=== PATIENT | male | born 2000 | race Caucasian/White ===

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

== ENCOUNTER 2021-09-16 15:19 | Emergency (ER) | payer OTHER ==
--- OUTSIDE RECORDS SUMMARY | 2021-09-16 15:26 | XMS REPORT | Continuity of Care Document ---
:2000 Author Organization [facility] t Address [address] [place] [address] Care Team Providers Name Role Phone Marcia Primary Care Physician DENI Attending Clinician Unavailable Deni BAIRES Attending Clinician Pob, Lab Main Attending Clinician Unavailable Doctor Unassigned, Name Attending Clinician Unavailable Vtc-Lab Attending Clinician Unavailable BENEDICTO Attending Clinician Unavailable Stephen PENALOZA Attending Clinician STEPHEN Attending Clinician Unavailable Sunitha PENALOZA Attending Clinician SUNITHA Attending Clinician Unavailable Gramm CONSERVATION SCIENTIST, A Attending Clinician Provider, Urgent Care Attending Clinician Unavailable Unknown Attending Clinician Unavailable Anene CONSERVATION SCIENTIST Attending Clinician ANENE Attending Clinician Unavailable Gurvinder PENALOZA Attending Clinician UNKNOWN Attending Clinician Unavailable Urology, Pedi Attending Clinician Unavailable Kwadwo PENALOZA Attending Clinician Payers Payer Name Policy Type Policy Number Effective Date Expiration Date Sebastian GUTIÉRREZS [id number] 2016 HEALTH 00:00:00 Problems Condition Condition Condition Status Onset Resolution Last Treating Co mments Source Name Details Category Date Date Treatment Clinician Date 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 4-26 ity of 00:00: [place] 00 Medical Branch Allergies, Adverse Reactions, Alerts Allergy Allergy Status Severity Reaction(s) Onset Inactive Treating Comm ents Source Name Type Date Date Clinician Aripipra Propensi Active Shortness of Informe d Univers zole ty to Breath 5-04 by parent ity of adverse 00:00: [place] reaction 00 Medical s to Branch drug Fluticas Propensi Active Shortness of Informe d Univers one ty to Breath 5-04 by parent ity of Propion- adverse 00:00: [place] Sal[place] reaction 00 Medica l ol s to Branch drug Ziprasid Propensi Active Shortness of Informe d Univers one Hcl ty to Breath 5-04 by parent ity of adverse 00:00: [place] reaction 00 Medical s to Branch drug Quetiapi Propensi Active Shortness of Informe d Univers ne ty to Breath 5-04 by parent ity of Fumarate adverse 00:00: [place] reaction 00 Medical s to Branch drug Bupropio Propensi Active Shortness of Informe d Univers n ty to Breath 5-04 by parent ity of adverse 00:00: [place] reaction 00 Medical s to Branch drug ARIPIPRA DRUG Active Med Anxiety 0 Univers ZOLE INGREDI 5-04 ity of 00:00: [place] 00 Medical Branch FLUTICAS DRUG Active Med SOB 2014-0 Univers ONE 5-04 ity of PROPION- 00:00: [place] SALMETER 00 Medical Branch ZIPRASID DRUG Active Med Anxiety 2015-0 Univers ONE HCL INGREDI 5-04 ity of 00:00: [place] 00 [facility] QUETIAPI DRUG Active Med Anaphylaxis 2015-0 Uni vers NE INGREDI 5-04 ity of FUMARATE 00:00: [place] 00 [facility] BUPROPIO DRUG Active Med Anxiety 2014-0 Univers N INGREDI 5-04 ity of 00:00: [place] 00 [facility] Social History Social Habit Start Date Stop Date Quantity Comments Source Exposure to Not sure [facility] SARS-CoV-2 (event) Medica l [place] Tobacco use and 2020-12-26 2020-12-26 Never used [facility] exposure 00:00:00 00:00:00 [facility] Alcohol intake 2020-12-26 2020-12-26 0 /d [facility] 00:00:00 00:00:00 [facility] Sex Assigned At 2000 2001 [facility] 00:00:00 00:00:00 Medical Branch Smoking Status Start Date Stop Date Source Never smoker [facility] Medical Branch Medications Ordered Filled Start Stop Current Ordering Indication Dosage Frequency Signature Comments Components Source Medication Medication Date Date Medication? Clinician (SIG) Name Name dexamethaso 2019-07- No 8mg Unive rs ne 09-04 ity of (DECADRON 00:30: 23:34 [place] PHOSPHATE) 00 :00 Medical injection 8 Branch mg dexamethaso 2019-07- No 8mg 8 mg, IV U nivers ne 09-04 Push, ity of (DECADRON 00:30: 23:34 [place]CE, 1 [place] PH[place] 00 :00 dose, Tue Medi hermes injection 8 07/03/20 at [facility] mg 1830, Routine cephALEXin 2019-07- No [id number] 500mg Take 1 Univers (KEFLEX) 09-0316 capsule by ity of 500 mg 00:00: 05:59 mouth 2 [place] capsule 00 :00 (two) Medical times Branch daily for 7 days. diphenhydrA 2019-07- No [id number] 25mg Take 1 Univers MINE 09-0314 capsule by ity of (BENADRYL) 00:00: 05:59 mouth [place] 25 mg 00 :00 every 6 Medical capsule (six) Branch hours as needed for Itching or Allergies for up to 5 days. hydrOXYzine 2020-0 Yes 25mg Take 25 mg Univers (ATARAX) 25 8-05 by mouth ity of mg tablet 20:44: at [place] [address] bedtime. Medical Branch propranolol 2020-0 Yes 10mg Take 10 mg Univers (INDERAL) 8-05 by mouth 2 ity of 10 mg 20:44: (two) [place] tablet 36 times Medical daily. Branch NIFEdipine 2020-0 Yes [id number] 30mg Take 30 mg Univers XL 8-05 by mouth ity of (NIFEDICAL 20:44: daily. [place] XL) 30 mg 36 Medical 24 hr Branch tablet citalopram 2020-0 Yes 20mg Take 20 mg U nivers 20 mg 8-05 by mouth ity of tablet 20:44: daily. [place] [address] Medical Branch hydrOXYzine 2020-0 Yes 25mg Take 25 mg Univers (ATARAX) 25 8-05 by mouth ity of mg tablet 20:44: at [place] [address] bedtime. Medical Branch propranolol 2020-0 Yes 10mg Take 10 mg Univers (INDERAL) 8-05 by mouth 2 ity of 10 mg 20:44: (two) [place] tablet 36 times Medical daily. Branch NIFEdipine 2020-0 Yes [id number] 30mg Take 30 mg Univers XL 8-05 by mouth ity of (NIFEDICAL 20:44: daily. [place] XL) 30 mg 36 Medical 24 hr Branch tablet citalopram 2020-0 Yes 20mg Take 20 mg U nivers 20 mg 8-05 by mouth ity of tablet 20:44: daily. [place] [address] Medical Branch hydrOXYzine 2020-0 Yes 25mg Take 25 mg Univers (ATARAX) 25 8-05 by mouth ity of mg tablet 20:44: at [place] [address] bedtime. Medical Branch propranolol 2020-0 Yes 10mg Take 10 mg Univers (INDERAL) 8-05 by mouth 2 ity of 10 mg 20:44: (two) [place] tablet 36 times Medical daily. Branch NIFEdipine 2020-0 Yes [id number] 30mg Take 30 mg Univers XL 8-05 by mouth ity of (NIFEDICAL 20:44: daily. [place] XL) 30 mg 36 Medical 24 hr Branch tablet citalopram 2020-0 Yes 20mg Take 20 mg U nivers 20 mg 8-05 by mouth ity of tablet 20:44: daily. [place] [address] Medical Branch hydrOXYzine 2020-0 Yes 25mg Take 25 mg Univers (ATARAX) 25 8-05 by mouth ity of mg tablet 20:44: at [place] [address] bedtime. Medical Branch propranolol 2020-0 Yes 10mg Take 10 mg Univers (INDERAL) 8-05 by mouth 2 ity of 10 mg 20:44: (two) [place] tablet 36 times Medical daily. Branch NIFEdipine 2020-0 Yes [id number] 30mg Take 30 mg Univers XL 8-05 by mouth ity of (NIFEDICAL 20:44: daily. [place] XL) 30 mg 36 Medical 24 hr Branch tablet citalopram 2020-0 Yes 20mg Take 20 mg U nivers 20 mg 8-05 by mouth ity of tablet 20:44: daily. [place] [address] Medical Branch hydrOXYzine 2020-0 Yes 25mg Take 25 mg Univers (ATARAX) 25 8-05 by mouth ity of mg tablet 20:44: at [place] [address] bedtime. Medical Branch propranolol 2020-0 Yes 10mg Take 10 mg Univers (INDERAL) 8-05 by mouth 2 ity of 10 mg 20:44: (two) [place] tablet 36 times Medical daily. Branch NIFEdipine 2020-0 Yes [id number] 30mg Take 30 mg Univers XL 8-05 by mouth ity of (NIFEDICAL 20:44: daily. [place] XL) 30 mg 36 Medical 24 hr Branch tablet citalopram 2020-0 Yes 20mg Take 20 mg U nivers 20 mg 8-05 by mouth ity of tablet 20:44: daily. [place] [address] Medical Branch hydrOXYzine 2020-0 Yes 25mg Take 25 mg Univers (ATARAX) 25 8-05 by mouth ity of mg tablet 20:44: at [place] [address] bedtime. Medical Branch propranolol 2020-0 Yes 10mg Take 10 mg Univers (INDERAL) 8-05 by mouth 2 ity of 10 mg 20:44: (two) [place] tablet 36 times Medical daily. Branch NIFEdipine 2020-0 Yes [id number] 30mg Take 30 mg Univers XL 8-05 by mouth ity of (NIFEDICAL 20:44: daily. [place] XL) 30 mg 36 Medical 24 hr Branch tablet citalopram 2020-0 Yes 20mg Take 20 mg U nivers 20 mg 8-05 by mouth ity of tablet 20:44: daily. [place] [address] Medical Branch hydrOXYzine 2020-0 Yes 25mg Take 25 mg Univers (ATARAX) 25 8-05 by mouth ity of mg tablet 20:44: at [place] [address] bedtime. Medical Branch propranolol 2020-0 Yes 10mg Take 10 mg Univers (INDERAL) 8-05 by mouth 2 ity of 10 mg 20:44: (two) [place] tablet 36 times Medical daily. Branch NIFEdipine 2020-0 Yes [id number] 30mg Take 30 mg Univers XL 8-05 by mouth ity of (NIFEDICAL 20:44: daily. [place] XL) 30 mg 36 Medical 24 hr Branch tablet citalopram 2020-0 Yes 20mg Take 20 mg U nivers 20 mg 8-05 by mouth ity of tablet 20:44: daily. [place] [address] Medical Branch hydrOXYzine 2020-0 Yes 25mg Take 25 mg Univers (ATARAX) 25 8-05 by mouth ity of mg tablet 20:44: at [place] [address] bedtime. Medical Branch propranolol 2020-0 Yes 10mg Take 10 mg Univers (INDERAL) 8-05 by mouth 2 ity of 10 mg 20:44: (two) [place] tablet 36 times Medical daily. Branch NIFEdipine 2020-0 Yes [id number] 30mg Take 30 mg Univers XL 8-05 by mouth ity of (NIFEDICAL 20:44: daily. [place] XL) 30 mg 36 Medical 24 hr Branch tablet citalopram 2020-0 Yes 20mg Take 20 mg U nivers 20 mg 8-05 by mouth ity of tablet 20:44: daily. [place] [address] Medical Branch hydrOXYzine 2020-0 Yes 25mg Take 25 mg Univers (ATARAX) 25 8-05 by mouth ity of mg tablet 20:44: at [place] [address] bedtime. Medical Branch propranolol 2020-0 Yes 10mg Take 10 mg Univers (INDERAL) 8-05 by mouth 2 ity of 10 mg 20:44: (two) [place] tablet 36 times Medical daily. Branch NIFEdipine 2020-0 Yes [id number] 30mg Take 30 mg Univers XL 8-05 by mouth ity of (NIFEDICAL 20:44: daily. [place] XL) 30 mg 36 Medical 24 hr Branch tablet citalopram 2020-0 Yes 20mg Take 20 mg U nivers 20 mg 8-05 by mouth ity of tablet 20:44: daily. [place] [address] Medical Branch hydrOXYzine 2020-0 Yes 25mg Take 25 mg Univers (ATARAX) 25 8-05 by mouth ity of mg tablet 20:44: at [place] [address] bedtime. Medical Branch propranolol 2020-0 Yes 10mg Take 10 mg Univers (INDERAL) 8-05 by mouth 2 ity of 10 mg 20:44: (two) [place] tablet 36 times Medical daily. Branch NIFEdipine 2020-0 Yes [id number] 30mg Take 30 mg Univers XL 8-05 by mouth ity of (NIFEDICAL 20:44: daily. [place] XL) 30 mg 36 Medical 24 hr Branch tablet citalopram 2020-0 Yes 20mg Take 20 mg U nivers 20 mg 8-05 by mouth ity of tablet 20:44: daily. [place] [address] Medical Branch hydrOXYzine 2020-0 Yes 25mg Take 25 mg Univers (ATARAX) 25 8-05 by mouth ity of mg tablet 20:44: at [place] [address] bedtime. Medical Branch propranolol 2020-0 Yes 10mg Take 10 mg Univers (INDERAL) 8-05 by mouth 2 ity of 10 mg 20:44: (two) [place] tablet 36 times Medical daily. Branch NIFEdipine 2020-0 Yes [id number] 30mg Take 30 mg Univers XL 8-05 by mouth ity of (NIFEDICAL 20:44: daily. [place] XL) 30 mg 36 Medical 24 hr Branch tablet citalopram 2020-0 Yes 20mg Take 20 mg U nivers 20 mg 8-05 by mouth ity of tablet 20:44: daily. [place] [address] Medical Branch hydrOXYzine 2020-0 Yes 25mg Take 25 mg Univers (ATARAX) 25 8-05 by mouth ity of mg tablet 20:44: at [place] [address] bedtime. Medical Branch propranolol 2020-0 Yes 10mg Take 10 mg Univers (INDERAL) 8-05 by mouth 2 ity of 10 mg 20:44: (two) [place] tablet 36 times Medical daily. Branch NIFEdipine 2020-0 Yes [id number] 30mg Take 30 mg Univers XL 8-05 by mouth ity of (NIFEDICAL 20:44: daily. [place] XL) 30 mg 36 Medical 24 hr Branch tablet citalopram 2020-0 Yes 20mg Take 20 mg U nivers 20 mg 8-05 by mouth ity of tablet 20:44: daily. [place] [address] Medical Branch hydrOXYzine 2020-0 Yes 25mg Take 25 mg Univers (ATARAX) 25 8-05 by mouth ity of mg tablet 20:44: at [place] [address] bedtime. Medical Branch propranolol 2020-0 Yes 10mg Take 10 mg Univers (INDERAL) 8-05 by mouth 2 ity of 10 mg 20:44: (two) [place] tablet 36 times Medical daily. Branch NIFEdipine 2020-0 Yes [id number] 30mg Take 30 mg Univers XL 8-05 by mouth ity of (NIFEDICAL 20:44: daily. [place] XL) 30 mg 36 Medical 24 hr Branch tablet citalopram 2020-0 Yes 20mg Take 20 mg U nivers 20 mg 8-05 by mouth ity of tablet 20:44: daily. [place] [address] Medical Branch hydrOXYzine 2020-0 Yes 25mg Take 25 mg Univers (ATARAX) 25 8-05 by mouth ity of mg tablet 20:44: at [place] [address] bedtime. Medical Branch propranolol 2020-0 Yes 10mg Take 10 mg Univers (INDERAL) 8-05 by mouth 2 ity of 10 mg 20:44: (two) [place] tablet 36 times Medical daily. Branch NIFEdipine 2020-0 Yes [id number] 30mg Take 30 mg Univers XL 8-05 by mouth ity of (NIFEDICAL 20:44: daily. [place] XL) 30 mg 36 Medical 24 hr Branch tablet citalopram 2020-0 Yes 20mg Take 20 mg U nivers 20 mg 8-05 by mouth ity of tablet 20:44: daily. [place] [address] Medical Branch hydrOXYzine 2020-0 Yes 25mg Take 25 mg Univers (ATARAX) 25 8-05 by mouth ity of mg tablet 20:44: at [place] [address] bedtime. Medical Branch propranolol 2020-0 Yes 10mg Take 10 mg Univers (INDERAL) 8-05 by mouth 2 ity of 10 mg 20:44: (two) [place] tablet 36 times Medical daily. Branch NIFEdipine 2020-0 Yes [id number] 30mg Take 30 mg Univers XL 8-05 by mouth ity of (NIFEDICAL 20:44: daily. [place] XL) 30 mg 36 Medical 24 hr Branch tablet citalopram 2020-0 Yes 20mg Take 20 mg U nivers 20 mg 8-05 by mouth ity of tablet 20:44: daily. [place] [address] Medical Branch hydrOXYzine 2020-0 Yes 25mg Take 25 mg Univers (ATARAX) 25 8-05 by mouth ity of mg tablet 20:44: at [place] [address] bedtime. Medical Branch propranolol 2020-0 Yes 10mg Take 10 mg Univers (INDERAL) 8-05 by mouth 2 ity of 10 mg 20:44: (two) [place] tablet 36 times Medical daily. Branch NIFEdipine 2020-0 Yes [id number] 30mg Take 30 mg Univers XL 8-05 by mouth ity of (NIFEDICAL 20:44: daily. [place] XL) 30 mg 36 Medical 24 hr Branch tablet citalopram 2020-0 Yes 20mg Take 20 mg U nivers 20 mg 8-05 by mouth ity of tablet 20:44: daily. [place] [address] Medical Branch hydrOXYzine 2020-0 Yes 25mg Take 25 mg Univers (ATARAX) 25 8-05 by mouth ity of mg tablet 20:44: at [place] [address] bedtime. Medical Branch propranolol 2020-0 Yes 10mg Take 10 mg Univers (INDERAL) 8-05 by mouth 2 ity of 10 mg 20:44: (two) [place] tablet 36 times Medical daily. Branch NIFEdipine 2020-0 Yes [id number] 30mg Take 30 mg Univers XL 8-05 by mouth ity of (NIFEDICAL 20:44: daily. [place] XL) 30 mg 36 Medical 24 hr Branch tablet citalopram 2020-0 Yes 20mg Take 20 mg U nivers 20 mg 8-05 by mouth ity of tablet 20:44: daily. [place] [address] Medical Branch hydrOXYzine 2020-0 Yes 25mg Take 25 mg Univers (ATARAX) 25 8-05 by mouth ity of mg tablet 20:44: at [place] [address] bedtime. Medical Branch propranolol 2020-0 Yes 10mg Take 10 mg Univers (INDERAL) 8-05 by mouth 2 ity of 10 mg 20:44: (two) [place] tablet 36 times Medical daily. Branch NIFEdipine 2020-0 Yes [id number] 30mg Take 30 mg Univers XL 8-05 by mouth ity of (NIFEDICAL 20:44: daily. [place] XL) 30 mg 36 Medical 24 hr Branch tablet citalopram 2020-0 Yes 20mg Take 20 mg U nivers 20 mg 8-05 by mouth ity of tablet 20:44: daily. [place] [address] Medical Branch hydrOXYzine 2020-0 Yes 25mg Take 25 mg Univers (ATARAX) 25 8-05 by mouth ity of mg tablet 20:44: at [place] [address] bedtime. Medical Branch propranolol 2020-0 Yes 10mg Take 10 mg Univers (INDERAL) 8-05 by mouth 2 ity of 10 mg 20:44: (two) [place] tablet 36 times Medical daily. Branch NIFEdipine 2020-0 Yes [id number] 30mg Take 30 mg Univers XL 8-05 by mouth ity of (NIFEDICAL 20:44: daily. [place] XL) 30 mg 36 Medical 24 hr Branch tablet citalopram 2020-0 Yes 20mg Take 20 mg U nivers 20 mg 8-05 by mouth ity of tablet 20:44: daily. [place] [address] Medical Branch hydrOXYzine 2020-0 Yes 25mg Take 25 mg Univers (ATARAX) 25 8-05 by mouth ity of mg tablet 20:44: at [place] [address] bedtime. Medical Branch propranolol 2020-0 Yes 10mg Take 10 mg Univers (INDERAL) 8-05 by mouth 2 ity of 10 mg 20:44: (two) [place] tablet 36 times Medical daily. Branch NIFEdipine 2020-0 Yes [id number] 30mg Take 30 mg Univers XL 8-05 by mouth ity of (NIFEDICAL 20:44: daily. [place] XL) 30 mg 36 Medical 24 hr Branch tablet citalopram 2020-0 Yes 20mg Take 20 mg U nivers 20 mg 8-05 by mouth ity of tablet 20:44: daily. [place] [address] Medical Branch hydrOXYzine 2020-0 Yes 25mg Take 25 mg Univers (ATARAX) 25 8-05 by mouth ity of mg tablet 20:44: at [place] [address] bedtime. Medical Branch propranolol 2020-0 Yes 10mg Take 10 mg Univers (INDERAL) 8-05 by mouth 2 ity of 10 mg 20:44: (two) [place] tablet 36 times Medical daily. Branch NIFEdipine 2020-0 Yes [id number] 30mg Take 30 mg Univers XL 8-05 by mouth ity of (NIFEDICAL 20:44: daily. [place] XL) 30 mg 36 Medical 24 hr Branch tablet citalopram 2020-0 Yes 20mg Take 20 mg U nivers 20 mg 8-05 by mouth ity of tablet 20:44: daily. [place] [address] Medical Branch hydrOXYzine 2020-0 Yes 25mg Take 25 mg Univers (ATARAX) 25 8-05 by mouth ity of mg tablet 15:44: at [place] [address] bedtime. Medical Branch propranolol 2020-0 Yes 10mg Take 10 mg Univers (INDERAL) 8-05 by mouth 2 ity of 10 mg 15:44: (two) [place] tablet 36 times Medical daily. Branch NIFEdipine 2020-0 Yes [id number] 30mg Take 30 mg Univers XL 8-05 by mouth ity of (NIFEDICAL 15:44: daily. [place] XL) 30 mg 36 Medical 24 hr Branch tablet citalopram 2020-0 Yes 20mg Take 20 mg U nivers 20 mg 8-05 by mouth ity of tablet 15:44: daily. [place] [address] Medical Branch hydrOXYzine 2020-0 Yes 25mg Take 25 mg Univers (ATARAX) 25 8-05 by mouth ity of mg tablet 15:44: at [place] [address] bedtime. Medical Branch propranolol 2020-0 Yes 10mg Take 10 mg Univers (INDERAL) 8-05 by mouth 2 ity of 10 mg 15:44: (two) [place] tablet 36 times Medical daily. Branch NIFEdipine 2020-0 Yes [id number] 30mg Take 30 mg Univers XL 8-05 by mouth ity of (NIFEDICAL 15:44: daily. [place] XL) 30 mg 36 Medical 24 hr Branch tablet citalopram 2020-0 Yes 20mg Take 20 mg U nivers 20 mg 8-05 by mouth ity of tablet 15:44: daily. [place] [address] Medical Branch hydrOXYzine 2020-0 Yes 25mg Take 25 mg Univers (ATARAX) 25 8-05 by mouth ity of mg tablet 15:44: at [place] [address] bedtime. Medical Branch propranolol 2020-0 Yes 10mg Take 10 mg Univers (INDERAL) 8-05 by mouth 2 ity of 10 mg 15:44: (two) [place] tablet 36 times Medical daily. Branch NIFEdipine 2020-0 Yes [id number] 30mg Take 30 mg Univers XL 8-05 by mouth ity of (NIFEDICAL 15:44: daily. [place] XL) 30 mg 36 Medical 24 hr Branch tablet citalopram 2020-0 Yes 20mg Take 20 mg U nivers 20 mg 8-05 by mouth ity of tablet 15:44: daily. [place] [address] Medical Branch hydrOXYzine 2020-0 Yes 25mg Take 25 mg Univers (ATARAX) 25 8-05 by mouth ity of mg tablet 15:44: at [place] [address] bedtime. Medical Branch propranolol 2020-0 Yes 10mg Take 10 mg Univers (INDERAL) 8-05 by mouth 2 ity of 10 mg 15:44: (two) [place] tablet 36 times Medical daily. Branch NIFEdipine 2020-0 Yes [id number] 30mg Take 30 mg Univers XL 8-05 by mouth ity of (NIFEDICAL 15:44: daily. [place] XL) 30 mg 36 Medical 24 hr Branch tablet citalopram 2020-0 Yes 20mg Take 20 mg U nivers 20 mg 8-05 by mouth ity of tablet 15:44: daily. [place] [address] Medical Branch sulfamethox 2020-0 2020- No [id number] 1{tbl} Take 1 Univers azole-trime 8-05 08-16 tablet by it y of thoprim 00:00: 04:59 mouth 2 [place] (BACTRIM 00 :00 (two) Medical DS) 800-160 times Branch mg per daily for tablet 10 days. hydrOXYzine 2020-0 Yes 25mg Take 25 mg Univers (ATARAX) 25 3-14 by mouth ity of mg tablet 00:24: at [place] [address] bedtime. Medical Branch propranolol 2020-0 Yes 10mg Take 10 mg Univers (INDERAL) 3-14 by mouth 2 ity of 10 mg 00:24: (two) [place] tablet 49 times Medical daily. Branch NIFEdipine 2020-0 Yes [id number] 30mg Take 30 mg Univers XL 3-14 by mouth ity of (NIFEDICAL 00:24: daily. [place] XL) 30 mg 49 Medical 24 hr Branch tablet citalopram 2020-0 Yes 20mg Take 20 mg U nivers 20 mg 3-14 by mouth ity of tablet 00:24: daily. [place] [address] Medical Branch hydrOXYzine 2020-0 Yes 25mg Take 25 mg Univers (ATARAX) 25 3-14 by mouth ity of mg tablet 00:24: at [place] [address] bedtime. Medical Branch propranolol 2020-0 Yes 10mg Take 10 mg Univers (INDERAL) 3-14 by mouth 2 ity of 10 mg 00:24: (two) [place] tablet 49 times Medical daily. Branch NIFEdipine 2020-0 Yes [id number] 30mg Take 30 mg Univers XL 3-14 by mouth ity of (NIFEDICAL 00:24: daily. [place] XL) 30 mg 49 Medical 24 hr Branch tablet citalopram 2020-0 Yes 20mg Take 20 mg U nivers 20 mg 3-14 by mouth ity of tablet 00:24: daily. [place] [address] Medical Branch proMETHazin 2020-0 Yes [id number] 25mg Take 1 Univers e 25 mg 3-13 tablet by ity of tablet 00:00: mouth [place] [address] every 4 Medical (four) Branch hours as needed for Nausea and Vomiting (N/V). proMETHazin 2020-0 Yes [id number] 25mg Take 1 Univers e 25 mg 3-13 tablet by ity of tablet 00:00: mouth [place] 00 every 4 Medical (four) Branch hours as needed for Nausea and Vomiting (N/V). proMETHazin 2020-0 2020- No [id number] 25mg Take 1 Univers e 25 mg 3-13 08-05 tablet by ity of tablet 00:00: 00:00 mouth [place] 00 :00 every 4 Medical (four) Branch hours as needed for Nausea and Vomiting (N/V). atomoxetine 2020-0 Yes atomoxetin Univers 18 mg 3-12 e 18 mg ity of capsule 00:00: capsule [place] [address] Medical Branch atomoxetine 2020-0 Yes atomoxetin Univers 18 mg 3-12 e 18 mg ity of capsule 00:00: capsule [place] [address] Medical Branch atomoxetine 2020-0 Yes atomoxetin Univers 18 mg 3-12 e 18 mg ity of capsule 00:00: capsule [place] [facility] Branch atomoxetine 2020-0 Yes atomoxetin [facility] 18 mg 3-12 e 18 mg ity of capsule 00:00: capsule [place] [facility] atomoxetine 2020-0 Yes atomoxetin [facility] 18 mg 3-12 e 18 mg ity of capsule 00:00: capsule [place] [facility] atomoxetine 2020-0 Yes atomoxetin [facility] 18 mg 3-12 e 18 mg ity of capsule 00:00: capsule [place] [facility] atomoxetine 2020-0 Yes atomoxetin [facility] 18 mg 3-12 e 18 mg ity of capsule 00:00: capsule [place] [facility] atomoxetine 2020-0 Yes atomoxetin [facility] 18 mg 3-12 e 18 mg ity of capsule 00:00: capsule [place] [facility] atomoxetine 2020-0 Yes atomoxetin [facility] 18 mg 3-12 e 18 mg ity of capsule 00:00: capsule [place] [facility] atomoxetine 2020-0 Yes atomoxetin Univers 18 mg 3-12 e 18 mg ity of capsule 00:00: capsule [place] [facility] atomoxetine 2020-0 Yes atomoxetin [facility] 18 mg 3-12 e 18 mg ity of capsule 00:00: capsule [place] [facility] atomoxetine 2020-0 Yes atomoxetin Univers 18 mg 3-12 e 18 mg ity of capsule 00:00: capsule [place] [facility] atomoxetine 2020-0 Yes atomoxetin [facility] 18 mg 3-12 e 18 mg ity of capsule 00:00: capsule [place] [facility] atomoxetine 2020-0 Yes atomoxetin Univers 18 mg 3-12 e 18 mg ity of capsule 00:00: capsule [place] [facility] atomoxetine 2020-0 Yes atomoxetin Univers 18 mg 3-12 e 18 mg ity of capsule 00:00: capsule [place] [facility] atomoxetine 2020-0 Yes atomoxetin [facility] 18 mg 3-12 e 18 mg ity of capsule 00:00: capsule [place] [facility] atomoxetine 2020-0 Yes atomoxetin [facility] 18 mg 3-12 e 18 mg ity of capsule 00:00: capsule [place] [facility] atomoxetine 2020-0 Yes atomoxetin Univers 18 mg 3-12 e 18 mg ity of capsule 00:00: capsule Medical Branch atomoxetine 2020-0 Yes atomoxetin [facility] 18 mg 3-12 e 18 mg ity of capsule 00:00: capsule [place] [facility] atomoxetine 2020-0 Yes atomoxetin Univers 18 mg 3-12 e 18 mg ity of capsule 00:00: capsule [place] [facility] atomoxetine 2020-0 Yes atomoxetin [facility] 18 mg 3-12 e 18 mg ity of capsule 00:00: capsule [place] [facility] atomoxetine 2020-0 Yes atomoxetin [facility] 18 mg 3-12 e 18 mg ity of capsule 00:00: capsule [place] [facility] atomoxetine 2020-0 Yes atomoxetin [facility] 18 mg 3-12 e 18 mg ity of capsule 00:00: capsule [place] [facility] atomoxetine 2020-0 Yes atomoxetin [facility] 18 mg 3-12 e 18 mg ity of capsule 00:00: capsule [place] [facility] atomoxetine 2019-0 Yes atomoxetin [facility] 18 mg 3-12 e 18 mg ity of capsule 00:00: capsule [place] [facility] atomoxetine 2019-0 Yes atomoxetin [facility] 18 mg 3-12 e 18 mg ity of capsule 00:00: capsule [place] [facility] atomoxetine 2020-0 Yes atomoxetin Univers 18 mg 3-12 e 18 mg ity of capsule 00:00: capsule [address] Branch citalopram Yes 20mg Take 20 mg U nivers 20 mg 2-18 by mouth ity of tablet 22:24: daily. [address] citalopram Yes 20mg Take 20 mg U nivers 20 mg 2-18 by mouth ity of tablet 22:24: daily. [address] citalopram Yes 20mg Take 20 mg U nivers 20 mg 2-18 by mouth ity of tablet 22:24: daily. [address] citalopram Yes 20mg Take 20 mg U nivers 20 mg 2-18 by mouth ity of tablet 22:24: daily. [address] benzonatate 2018- Yes [id number] 100mg Take 1 Univers 100 mg 2-18 capsule by ity of capsule 00:00: mouth 3 [place] [id number] (three) Medical times Branch daily as needed for Cough. ondansetron Yes [id number] 4mg Take 1 U nivers (ZOFRAN 2-18 tablet by ity of ODT) 4 mg 00:00: mouth [place] disintegrat 00 every 8 Medic al ing tablet (eight) Branch hours as needed for Nausea and Vomiting (N/V). ibuprofen 2019-0 Yes [id number] 600mg Take 1 Un lilli 600 mg 2-18 tablet by ity of tablet 00:00: mouth [place] 00 every 6 Medical (six) Branch hours as needed for Pain (scale 4-6). benzonatate 2019-0 Yes [id number] 100mg Take 1 Univers 100 mg 2-18 capsule by ity of capsule 00:00: mouth 3 [place] 00 (three) Medical times Branch daily as needed for Cough. ondansetron 2019-0 Yes [id number] 4mg Take 1 U nivers (ZOFRAN 2-18 tablet by ity of ODT) 4 mg 00:00: mouth [place] disintegrat 00 every 8 Medic al ing tablet (eight) Branch hours as needed for Nausea and Vomiting (N/V). ibuprofen 2019-0 Yes [id number] 600mg Take 1 Un lilli 600 mg 2-18 tablet by ity of tablet 00:00: mouth [place] 00 every 6 Medical (six) Branch hours as needed for Pain (scale 4-6). benzonatate 2019-0 Yes [id number] 100mg Take 1 Univers 100 mg 2-18 capsule by ity of capsule 00:00: mouth 3 [place] 00 (three) Medical times Branch daily as needed for Cough. ondansetron 2019-0 Yes [id number] 4mg Take 1 U nivers (ZOFRAN 2-18 tablet by ity of ODT) 4 mg 00:00: mouth [place] disintegrat 00 every 8 Medic al ing tablet (eight) Branch hours as needed for Nausea and Vomiting (N/V). ibuprofen 2019-0 Yes [id number] 600mg Take 1 Un lilli 600 mg 2-18 tablet by ity of tablet 00:00: mouth [place] 00 every 6 Medical (six) Branch hours as needed for Pain (scale 4-6). benzonatate 2019-0 Yes [id number] 100mg Take 1 Univers 100 mg 2-18 capsule by ity of capsule 00:00: mouth 3 [place] 00 (three) Medical times Branch daily as needed for Cough. ondansetron 2019-0 Yes [id number] 4mg Take 1 U nivers (ZOFRAN 2-18 tablet by ity of ODT) 4 mg 00:00: mouth [place] disintegrat 00 every 8 Medic al ing tablet (eight) Branch hours as needed for Nausea and Vomiting (N/V). ibuprofen 2019-0 Yes [id number] 600mg Take 1 Un lilli 600 mg 2-18 tablet by ity of tablet 00:00: mouth [place] 00 every 6 Medical (six) Branch hours as needed for Pain (scale 4-6). benzonatate 2019-0 Yes [id number] 100mg Take 1 Univers 100 mg 2-18 capsule by ity of capsule 00:00: mouth 3 [place] 00 (three) Medical times Branch daily as needed for Cough. ondansetron 2018-0 Yes [id number] 4mg Take 1 U nivers (ZOFRAN 2-18 tablet by ity of ODT) 4 mg 00:00: mouth [place] disintegrat 00 every 8 Medic al ing tablet (eight) Branch hours as needed for Nausea and Vomiting (N/V). ibuprofen Yes [id number] 600mg Take 1 Un lilli 600 mg 2-18 tablet by ity of tablet 00:00: mouth [place] 00 every 6 Medical (six) Branch hours as needed for Pain (scale 4-6). benzonatate 2018-0 Yes [id number] 100mg Take 1 Univers 100 mg 2-18 capsule by ity of capsule 00:00: mouth 3 [place] 00 (three) Medical times Branch daily as needed for Cough. ondansetron 0 Yes [id number] 4mg Take 1 U nivers (ZOFRAN 2-18 tablet by ity of ODT) 4 mg 00:00: mouth [place] disintegrat 00 every 8 Medic al ing tablet (eight) Branch hours as needed for Nausea and Vomiting (N/V). ibuprofen 0 Yes [id number] 600mg Take 1 Un l[facility] 600 mg 2-18 tablet by ity of tablet 00:00: mouth [place] 00 every 6 Medical (six) Branch hours as needed for Pain (scale 4-6). benzonatate 2020- No [id number] 100mg Take 1 Univers 100 mg 2-18 08-05 capsule by ity of capsule 00:00: 00:00 mouth 3 [place] 00 :00 (three) Medical times Branch daily as needed for Cough. ondansetron 2018-0 2020- No [id number] 4mg Take 1 Univers (ZOFRAN 2-18 -05 tablet by ity of ODT) 4 mg 00:00: 00:00 mouth [place] disintegrat 00 :00 every 8 Medic al ing tablet (eight) Branch hours as needed for Nausea and Vomiting (N/V). ibuprofen 2020- No [id number] 600mg Take 1 U nivers 600 mg 2-18 -05 tablet by ity of tablet 00:00: 00:00 mouth [place] 00 :00 every 6 Medical (six) Branch hours as needed for Pain (scale 4-6). propranolol Yes 10mg Take 10 mg Univers (INDERAL) 7-11 by mouth 2 ity of 10 mg 18:23: (two) [place] tablet 37 times Medical daily. Branch NIFEdipine Yes [id number] 30mg Take 30 mg Univers XL 7-11 by mouth ity of (NIFEDICAL 18:23: daily. [place] XL) 30 mg 37 Medical 24 hr Branch tablet propranolol Yes 10mg Take 10 mg Univers (INDERAL) 7-11 by mouth 2 ity of 10 mg 18:23: (two) [place] tablet 37 times Medical daily. Branch NIFEdipine Yes [id number] 30mg Take 30 mg Univers XL 7-11 by mouth ity of (NIFEDICAL 18:23: daily. [place] XL) 30 mg 37 Medical 24 hr Branch tablet propranolol Yes 10mg Take 10 mg Univers (INDERAL) 7-11 by mouth 2 ity of 10 mg 18:23: (two) [place] tablet 37 times Medical daily. Branch NIFEdipine Yes [id number] 30mg Take 30 mg Univers XL 7-11 by mouth ity of (NIFEDICAL 18:23: daily. [place] XL) 30 mg 37 Medical 24 hr Branch tablet propranolol Yes 10mg Take 10 mg Univers (INDERAL) 7-11 by mouth 2 ity of 10 mg 18:23: (two) [place] tablet 37 times Medical daily. Branch NIFEdipine Yes [id number] 30mg Take 30 mg Univers XL 7-11 by mouth ity of (NIFEDICAL 18:23: daily. [place] XL) 30 mg 37 Medical 24 hr Branch tablet hydrOXYzine Yes 25mg Take 25 mg Univers (ATARAX) 25 5-09 by mouth ity of mg tablet 19:34: at [place] 25 bedtime. Medical Branch hydrOXYzine Yes 25mg Take 25 mg Univers (ATARAX) 25 5-09 by mouth ity of mg tablet 19:34: at [place] [address] bedtime. [facility] hydrOXYzine 2017-0 Yes 25mg Take 25 mg Univers (ATARAX) 25 5-09 by mouth ity of mg tablet 19:34: at [place] [address] bedtime. [facility] hydrOXYzine 2017-0 Yes 25mg Take 25 mg Univers (ATARAX) 25 5-09 by mouth ity of mg tablet 19:34: at [place] [address] bedtime. [facility] FLUoxetine 2017-0 Yes daily. Unive rs 40 mg 5-04 ity of capsule 00:00: [place] 00 [facility] FLUoxetine 2017-0 Yes daily. Unive rs 40 mg 5-04 ity of capsule 00:00: [place] 00 [facility] FLUoxetine 2017-0 Yes daily. Unive rs 40 mg 5-04 ity of capsule 00:00: [place] 00 [facility] FLUoxetine 2017-0 Yes daily. Unive rs 40 mg 5-04 ity of capsule 00:00: [place] 00 [facility] FLUoxetine 2017-0 Yes daily. Unive rs 40 mg 5-04 ity of capsule 00:00: [place] 00 [facility] FLUoxetine 2017-0 Yes daily. Unive rs 40 mg 5-04 ity of capsule 00:00: [place] 00 [facility] FLUoxetine 2017-0 Yes daily. Unive rs 40 mg 5-04 ity of capsule 00:00: [place] [facility] FLUoxetine 2017-0 Yes daily. Unive rs 40 mg 5-04 ity of capsule 00:00: [place] 00 [facility] FLUoxetine 2017-0 Yes daily. Unive rs 40 mg 5-04 ity of capsule 00:00: [place] 00 [facility] FLUoxetine 2017-0 Yes daily. Unive rs 40 mg 5-04 ity of capsule 00:00: [place] 00 [facility] FLUoxetine 2017-0 Yes daily. Unive rs 40 mg 5-04 ity of capsule 00:00: [place] 00 [facility] FLUoxetine 2017-0 Yes daily. Unive rs 40 mg 5-04 ity of capsule 00:00: [place] 00 [facility] FLUoxetine 2017-0 Yes daily. Unive rs 40 mg 5-04 ity of capsule 00:00: [place] 00 [facility] FLUoxetine 2017-0 Yes daily. Unive rs 40 mg 5-04 ity of capsule 00:00: [place] 00 Medical Branch FLUoxetine 2017-0 Yes daily. Unive rs 40 mg 5-04 ity of capsule 00:00: [place] 00 Medical Branch FLUoxetine 2017-0 Yes daily. Unive rs 40 mg 5-04 ity of capsule 00:00: [place] [facility] FLUoxetine 2017-0 Yes daily. Unive rs 40 mg 5-04 ity of capsule 00:00: [place] [facility] FLUoxetine 2017-0 Yes daily. Unive rs 40 mg 5-04 ity of capsule 00:00: [place] [facility] FLUoxetine 2017-0 Yes daily. Unive rs 40 mg 5-04 ity of capsule 00:00: [place] [facility] FLUoxetine 2017-0 Yes daily. Unive rs 40 mg 5-04 ity of capsule 00:00: [place] [facility] FLUoxetine 2017-0 Yes daily. Unive rs 40 mg 5-04 ity of capsule 00:00: [place] [facility] FLUoxetine 2017-0 Yes daily. Unive rs 40 mg 5-04 ity of capsule 00:00: [place] [facility] FLUoxetine 2017-0 Yes daily. Unive rs 40 mg 5-04 ity of capsule 00:00: [place] [facility] FLUoxetine 2017-0 Yes daily. Unive rs 40 mg 5-04 ity of capsule 00:00: [place] [facility] FLUoxetine 2017-0 Yes daily. Unive rs 40 mg 5-04 ity of capsule 00:00: [place] [facility] FLUoxetine 2017-0 Yes daily. Unive rs 40 mg 5-04 ity of capsule 00:00: [place] [facility] FLUoxetine 2017-0 Yes daily. Unive rs 40 mg 5-04 ity of capsule 00:00: [place] [facility] FLUoxetine 2017-0 Yes daily. Unive rs 40 mg 5-04 ity of capsule 00:00: [place] [facility] FLUoxetine 2017-0 Yes daily. Unive rs 40 mg 5-04 ity of capsule 00:00: [place] [facility] FLUoxetine 2017-0 Yes daily. Unive rs 40 mg 5-04 ity of capsule 00:00: [place] [facility] FLUoxetine 2017-0 Yes daily. Unive rs 40 mg 5-04 ity of capsule 00:00: [place] [facility] acetaminoph 2017-0 Yes 1{tbl} Take 1 Un lilli en-codeine 4-26 tablet by ity of 300-30 mg 00:00: mouth [place] tablet 00 every 4 Medical (four) Branch hours as needed for Pain (scale 1-3) or Pain (scale 7-10). acetaminoph 2017- Yes 1{tbl} Take 1 Un lilli en-codeine 4-26 tablet by ity of 300-30 mg 00:00: mouth [place] tablet 00 every 4 Medical (four) Branch hours as needed for Pain (scale 1-3) or Pain (scale 7-10). acetaminoph 2017-0 Yes 1{tbl} Take 1 Un lilli en-codeine 4-26 tablet by ity of 300-30 mg 00:00: mouth [place] tablet 00 every 4 Medical (four) Branch hours as needed for Pain (scale 1-3) or Pain (scale 7-10). acetaminoph Yes 1{tbl} Take 1 Un lilli en-codeine 4-26 tablet by ity of 300-30 mg 00:00: mouth [place] tablet 00 every 4 Medical (four) Branch hours as needed for Pain (scale 1-3) or Pain (scale 7-10). acetaminoph Yes 1{tbl} Take 1 Un lilli en-codeine 4-26 tablet by ity of 300-30 mg 00:00: mouth [place] tablet 00 every 4 Medical (four) Branch hours as needed for Pain (scale 1-3) or Pain (scale 7-10). acetaminoph Yes 1{tbl} Take 1 Un lilli en-codeine 4-26 tablet by ity of 300-30 mg 00:00: mouth [place] tablet 00 every 4 Medical (four) Branch hours as needed for Pain (scale 1-3) or Pain (scale 7-10). acetaminoph 2017 2020- No 1{tbl} Take 1 U nivers en-codeine 4-26 08-05 tablet by ity of 300-30 mg 00:00: 00:00 mouth [place] tablet 00 :00 every 4 Medical (four) Branch hours as needed for Pain (scale 1-3) or Pain (scale 7-10). polyethylen 2017- Yes as needed. Univers e glycol 17 3-07 ity of gram/dose 00:00: [place] powder 00 Medical Branch polyethylen 2017-0 Yes as needed. Univers e glycol 17 3-07 ity of gram/dose 00:00: [place] powder 00 Medical Branch polyethylen 2017-0 Yes as needed. Univers e glycol 17 3-07 ity of gram/dose 00:00: [place] powder 00 Medical Branch polyethylen 2017-0 Yes as needed. Univers e glycol 17 3-07 ity of gram/dose 00:00: [place] powder 00 Medical Branch polyethylen 2017-0 Yes as needed. Univers e glycol 17 3-07 ity of gram/dose 00:00: [place] powder 00 Medical Branch polyethylen 2017-0 Yes as needed. Univers e glycol 17 3-07 ity of gram/dose 00:00: [place] powder 00 Medical Branch polyethylen 2017-0 Yes as needed. Univers e glycol 17 3-07 ity of gram/dose 00:00: [place] powder 00 Medical Branch polyethylen 2017-0 Yes as needed. Univers e glycol 17 3-07 ity of gram/dose 00:00: [place] powder 00 Medical Branch polyethylen 2017-0 Yes as needed. Univers e glycol 17 3-07 ity of gram/dose 00:00: [place] powder 00 Medical Branch polyethylen 2017-0 Yes as needed. Univers e glycol 17 3-07 ity of gram/dose 00:00: [place] powder 00 Medical Branch polyethylen 2017-0 Yes as needed. Univers e glycol 17 3-07 ity of gram/dose 00:00: [place] powder 00 Medical Branch polyethylen 2017-0 Yes as needed. Univers e glycol 17 3-07 ity of gram/dose 00:00: [place] powder 00 Medical Branch polyethylen 2017-0 Yes as needed. Univers e glycol 17 3-07 ity of gram/dose 00:00: [place] powder 00 Medical Branch polyethylen 2017-0 Yes as needed. Univers e glycol 17 3-07 ity of gram/dose 00:00: [place] powder 00 Medical Branch polyethylen 2017-0 Yes as needed. Univers e glycol 17 3-07 ity of gram/dose 00:00: [place] powder 00 Medical Branch polyethylen 2017-0 Yes as needed. Univers e glycol 17 3-07 ity of gram/dose 00:00: [place] powder 00 Medical Branch polyethylen 2017-0 Yes as needed. Univers e glycol 17 3-07 ity of gram/dose 00:00: [place] powder 00 Medical Branch polyethylen 2017-0 Yes as needed. Univers e glycol 17 3-07 ity of gram/dose 00:00: [place] powder 00 Medical Branch polyethylen 2017-0 Yes as needed. Univers e glycol 17 3-07 ity of gram/dose 00:00: [place] powder 00 Medical Branch polyethylen 2017-0 Yes as needed. Univers e glycol 17 3-07 ity of gram/dose 00:00: [place] powder 00 Medical Branch polyethylen [id number] Yes as needed. Univers e glycol 17 3-07 ity of gram/dose 00:00: [place] powder 00 Medical Branch polyethylen 2017-0 Yes as needed. Univers e glycol 17 3-07 ity of gram/dose 00:00: [place] powder 00 Medical Branch polyethylen 2017-0 Yes as needed. Univers e glycol 17 3-07 ity of gram/dose 00:00: [place] powder 00 Medical Branch polyethylen [id number] Yes as needed. Univers e glycol 17 3-07 ity of gram/dose 00:00: [place] powder 00 Medical Branch polyethylen 2017 Yes as needed. Univers e glycol 17 3-07 ity of gram/dose 00:00: [place] powder 00 Medical Branch polyethylen 2017 Yes as needed. Univers e glycol 17 3-07 ity of gram/dose 00:00: [place] powder 00 Medical Branch polyethylen [id number] Yes as needed. Univers e glycol 17 3-07 ity of gram/dose 00:00: [place] powder 00 Medical Branch polyethylen [id number] Yes as needed. Univers e glycol 17 3-07 ity of gram/dose 00:00: [place] powder 00 Medical Branch polyethylen 2017 Yes as needed. Univers e glycol 17 3-07 ity of gram/dose 00:00: [place] powder 00 Medical Branch polyethylen 2017 Yes as needed. Univers e glycol 17 3-07 ity of gram/dose 00:00: [place] powder 00 Medical Branch polyethylen [id number] Yes as needed. Univers e glycol 17 3-07 ity of gram/dose 00:00: [place] powder 00 [facility] Branch cetirizine 2015-07 Yes TK 1 T PO Un lilli 10 mg 2-19 QHS ity of tablet 00:00: [facility] cetirizine 2015-07 Yes TK 1 T PO Un lilli 10 mg 2-19 QHS ity of tablet 00:00: Medical Branch cetirizine 2016 Yes TK 1 T PO Un lilli 10 mg 2-19 QHS ity of tablet 00:00: [place] [facility] Branch cetirizine 2016 Yes TK 1 T PO Un lilli 10 mg 2-19 QHS ity of tablet 00:00: [place] [facility] Branch cetirizine 2015-07 Yes TK 1 T PO Un lilli 10 mg 2-19 QHS ity of tablet 00:00: [place] [facility] Branch cetirizine 2015-07 Yes TK 1 T PO Un lilli 10 mg 2-19 QHS ity of tablet 00:00: [place] [facility] cetirizine 2015-07 Yes TK 1 T PO Un lilli 10 mg 2-19 QHS ity of tablet 00:00: [place] [facility] cetirizine 2015-07 Yes TK 1 T PO Un lilli 10 mg 2-19 QHS ity of tablet 00:00: [place] [facility] cetirizine 2015-07 Yes TK 1 T PO Un lilli 10 mg 2-19 QHS ity of tablet 00:00: [place] [facility] cetirizine 2015-07 Yes TK 1 T PO Un lilli 10 mg 2-19 QHS ity of tablet 00:00: [place] [facility] cetirizine 2015-07 Yes TK 1 T PO Un lilli 10 mg 2-19 QHS ity of tablet 00:00: [place] [facility] cetirizine 2015-07 Yes TK 1 T PO Un lilli 10 mg 2-19 QHS ity of tablet 00:00: [place] [facility] Branch cetirizine 2015-07 Yes TK 1 T PO Un lilli 10 mg 2-19 QHS ity of tablet 00:00: [place] [facility] cetirizine 2015-07 Yes TK 1 T PO Un lilli 10 mg 2-19 QHS ity of tablet 00:00: [place] [facility] cetirizine 2015-07 Yes TK 1 T PO Un lilli 10 mg 2-19 QHS ity of tablet 00:00: [place] [facility] cetirizine 2015-07 Yes TK 1 T PO Un lilli 10 mg 2-19 QHS ity of tablet 00:00: [place] [facility] cetirizine 2015-07 Yes TK 1 T PO Un lilli 10 mg 2-19 QHS ity of tablet 00:00: [place] [facility] Branch cetirizine 2016 Yes TK 1 T PO Un lilli 10 mg 2-19 QHS ity of tablet 00:00: [place] [facility] cetirizine 2015-07 Yes TK 1 T PO Un lilli 10 mg 2-19 QHS ity of tablet 00:00: [place] [facility] Branch cetirizine 2015-07 Yes TK 1 T PO Un lilli 10 mg 2-19 QHS ity of tablet 00:00: [place] [facility] cetirizine 2015-07 Yes TK 1 T PO Un lilli 10 mg 2-19 QHS ity of tablet 00:00: [place] [facility] cetirizine 2015-07 Yes TK 1 T PO Un lilli 10 mg 2-19 QHS ity of tablet 00:00: [place] [facility] cetirizine 2015-07 Yes TK 1 T PO Un lilli 10 mg 2-19 QHS ity of tablet 00:00: [place] [facility] cetirizine 2015-07 Yes TK 1 T PO Un lilli 10 mg 2-19 QHS ity of tablet 00:00: [place] [facility] Branch cetirizine 2015-07 Yes TK 1 T PO Un lilli 10 mg 2-19 QHS ity of tablet 00:00: [place] [facility] Branch cetirizine 2015-07 Yes TK 1 T PO Un lilli 10 mg 2-19 QHS ity of tablet 00:00: [place] [facility] Branch cetirizine 2015-07 Yes TK 1 T PO Un lilli 10 mg 2-19 QHS ity of tablet 00:00: [place] [facility] Branch cetirizine 2015-07 Yes TK 1 T PO Un lilli 10 mg 2-19 QHS ity of tablet 00:00: [place] [facility] Branch cetirizine 2015-07 Yes TK 1 T PO Un lilli 10 mg 2-19 QHS ity of tablet 00:00: [place] [facility] Branch cetirizine 2015-07 Yes TK 1 T PO Un lilli 10 mg 2-19 QHS ity of tablet 00:00: [place] [facility] cetirizine 2015-07 Yes TK 1 T PO Un lilli 10 mg 2-19 QHS ity of tablet 00:00: [place] [facility] Vital Signs Vital Name Observation Time Observation Value Comments Source Systolic blood 2020-12-26 21:13:00 117 mm[Hg] Univer sity of pressure [place] [facility] Diastolic blood 2020-12-26 21:13:00 75 mm[Hg] Unive rsity of pressure [place] [facility] Heart rate 2020-12-26 21:13:00 83 /min [facility] [place] [facility] Body temperature 2020-12-26 21:08:00 36.33 [place] [facility] ersity of [place] [facility] Respiratory rate 2020-12-26 21:08:00 18 /min [facility] ersity [facility] [place] [facility] Body height 2020-12-26 21:08:00 175.3 cm [facility] [place] [facility] Body weight 2020-12-26 21:08:00 93.895 kg [facility] [place] [facility] BMI 2020-12-26 21:08:00 30.57 kg/m2 [facility] [place] [facility] [place] Oxygen saturation in 2020-12-26 21:08:00 98 /min University of Arterial blood by [facility] Pulse oximetry Branch Systolic blood 2020-09-03 16:28:00 125 mm[Hg] Univer sity of pressure [place] [facility] Diastolic blood 2020-09-03 16:28:00 85 mm[Hg] Unive rsity of pressure [place] [facility] Heart rate 2020-09-03 16:28:00 78 /min [facility] [place] [facility] Body temperature 2020-09-03 16:28:00 36.56 [place] [facility] [place] [facility] Respiratory rate 2020-09-03 16:28:00 18 /min [facility] ers[facility] [place] [facility] Body height 2020-09-03 16:28:00 175.3 cm [facility] [place] [facility] Body weight 2020-09-03 16:28:00 94.167 kg [facility] [place] [facility] BMI 2020-09-03 16:28:00 30.66 kg/m2 [facility] [place] [facility] Systolic blood 2020-08-06 20:52:00 137 mm[Hg] Univer sity of pressure [place] [facility] Diastolic blood 2020-08-06 20:52:00 86 mm[Hg] Unive rsity of pressure [place] [facility] Heart rate 2020-08-06 20:52:00 74 /min [facility] [place] [facility] Body temperature 2020-08-06 20:52:00 37 [place] [facility] [place] [facility] Respiratory rate 2020-08-06 20:52:00 18 /min [facility] [place] [facility] Body height 2020-08-06 20:52:00 175.3 cm [facility] [place] [facility] Body weight 2020-08-06 20:52:00 95.074 kg [facility] [place] [facility] BMI 2020-08-06 20:52:00 30.95 kg/m2 Universi ty of [facility] Branch Systolic blood 2020-07-03 23:11:00 140 mm[Hg] Univer sity of pressure [place] [facility] Diastolic blood 2020-07-03 23:11:00 85 mm[Hg] Unive rsity of pressure [place] [facility] Heart rate 2020-07-03 23:08:00 90 /min Universi ty of [facility] Branch Body temperature 2020-07-03 23:08:00 37.39 [place] [facility] ersity of [facility] Branch Respiratory rate 2020-07-03 23:08:00 18 /min [facility] [place] [facility] Body height 2020-07-03 23:08:00 172.7 cm [facility] [place] [facility] Body weight 2020-07-03 23:08:00 89.359 kg [facility] [place] [facility] BMI 2020-07-03 23:08:00 29.95 kg/m2 [facility] [place] [facility] Oxygen saturation in 2020-07-03 23:08:00 97 /min University Arterial blood by [facility] Pulse oximetry Branch Systolic blood 2020-07-03 23:11:00 140 mm[Hg] Univer sity of pressure [place] [facility] Diastolic blood 2020-07-03 23:11:00 85 mm[Hg] Unive rsity of pressure [place] [facility] Heart rate 2020-07-03 23:08:00 90 /min [facility] [place] [facility] Body temperature 2020-07-03 23:08:00 37.39 [place] [facility] ersity of [facility] Branch Respiratory rate 2020-07-03 23:08:00 18 /min [facility] [place] [facility] Body height 2020-07-03 23:08:00 172.7 cm [facility] [place] [facility] Body weight 2020-07-03 23:08:00 89.359 kg [facility] [place] [facility] BMI 2020-07-03 23:08:00 29.95 kg/m2 [facility] [place] [facility] Oxygen saturation in 2020-07-03 23:08:00 97 /min [facility] of Arterial blood by [facility] Pulse oximetry Branch Systolic blood 2020-02-29 20:45:00 131 mm[Hg] Univer sity of pressure [place] [facility] Diastolic blood 2020-02-29 20:45:00 91 mm[Hg] Unive rsity of pressure [place] [facility] Heart rate 2020-02-29 20:45:00 64 /min [facility] [place] [facility] Body temperature 2020-02-29 20:45:00 37.22 [place] [facility] [place] [facility] Respiratory rate 2020-02-29 20:45:00 18 /min [facility] [place] [facility] Oxygen saturation in 2020-02-29 20:45:00 98 /min [facility] of Arterial blood by [facility] Pulse oximetry Branch Systolic blood 2020-02-29 20:45:00 131 mm[Hg] Univer sity of pressure [place] [facility] Diastolic blood 2020-02-29 20:45:00 91 mm[Hg] Unive rsity of pressure [place] [facility] Heart rate 2020-02-29 20:45:00 64 /min [facility] [place] [facility] Body temperature 2020-02-29 20:45:00 37.22 [place] [facility] [place] [facility] Respiratory rate 2020-02-29 20:45:00 18 /min [facility] [place] [facility] Oxygen saturation in 2020-02-29 20:45:00 98 /min [facility] of Arterial blood by [facility] Pulse oximetry Branch Systolic blood 2019-10-08 00:26:00 129 mm[Hg] Univer sity of pressure [place] [facility] Diastolic blood 2019-10-08 00:26:00 70 mm[Hg] Unive rsity of pressure [place] [facility] Heart rate 2019-10-08 00:26:00 103 /min [facility] [place] [facility] Body temperature 2019-10-08 00:26:00 37.06 [place] [facility] [place] [facility] Respiratory rate 2019-10-08 00:26:00 16 /min [facility] [place] [facility] Body height 2019-10-08 00:26:00 175.3 cm [facility] [place] [facility] Body weight 2019-10-08 00:26:00 89.359 kg [facility] [place] [facility] [place] BMI 2019-10-08 00:26:00 29.09 kg/m2 [facility] [place] [facility] [place] Oxygen saturation in 2019-10-08 00:26:00 99 /min University of Arterial blood by [facility] Pulse oximetry Branch Systolic blood 2019-10-08 00:26:00 129 mm[Hg] Univer sity of pressure [facility] Diastolic blood 2019-10-08 00:26:00 70 mm[Hg] Unive rsity of pressure [facility] Heart rate 2019-10-08 00:26:00 103 /min Universi ty of [facility] Body temperature 2019-10-08 00:26:00 37.06 [place] [facility] [place] [facility] 2019-10-08 00:26:00 16 /min [facility] [place] [facility] [facility] Body height 2019-10-08 00:26:00 175.3 cm [facility]i ty [facility] Body weight 2019-10-08 00:26:00 89.359 kg Universi ty [facility] [place] BMI 2019-10-08 00:26:00 29.09 kg/m2 Universi ty [facility] [place] Oxygen saturation in 2019-10-08 00:26:00 99 /min University of Arterial blood by [facility] Pulse oximetry Branch Body temperature 2019-04-05 19:20:00 36.94 Lizette [facility] ersity [facility] Body weight 2019-04-05 19:20:00 87.5 kg Universi ty [facility] [place] Body temperature 2019-04-05 19:20:00 36.94 Lizette [facility] ersity [facility] Body weight 2019-04-05 19:20:00 87.5 kg Universi ty [facility] Procedures Procedure Date / Time Performing Clinician Source Performed ASSIGNMENT OF BENEFITS 2021-07-04 21:03:58 Doctor Unassigned, [facility] Name Medical [place] EXTERNAL PROVIDER RECORDS 2021-02-21 05:01:00 Doctor Unassigned, [facility] [place] [facility] PHOSPHORUS 2020-12-26 21:55:00 [facility] MAGNESIUM 2020-12-26 21:55:00 [facility] BASIC METABOLIC PANEL (NA, 2020-12-26 21:55:00 Kochar, Nolan [facility] K, CL, CO2, GLUCOSE, BUN, Medica l Branch CREATININE, CA) CBC WITHOUT DIFF 2020-12-26 21:55:00 Nolan [facility]ema [facility] URINALYSIS 2020-12-26 21:55:00 Nolan Cheema [place] [facility] PROTEIN CREAT RATIO URINE 2020-12-26 21:55:00 Nolan Cheema Un [facility] EXTERNAL PROVIDER RECORDS 2020-09-17 06:01:00 Doctor Ian, [facility] [place] [facility] CT ABDOMEN PELVIS WO 2020-08-22 17:09:33 [facility] US SCROTUM AND CONTENTS 2020-08-11 02:47:15 Dagoberto Helton [facility] US RETROPERITONEAL 2020-08-11 02:07:07 Sunitha [facility] COMPLETE [facility] POCT URINALYSIS AUTO 2020-08-06 20:54:00 Dagoberto [facility] ASSIGNMENT OF BENEFITS 2020-08-06 20:18:18 Doctor Unaparis, Un [facility] POCT GRP A STREP 2020-07-03 23:33:00 Trey Ochoa [facility] (MOLECULAR) Medical [place] REFERRAL- REQUEST/RESPONSE 2019-03-31 05:01:00 Doctor Ian , [facility] Name [facility] Encounters Start End Encounter Admission Attending Care Care Encounter Source Date/Time Date/Time Type Type Clinicians Facility Department ID 2021-05-25 Emergency [facility] [id number] Univers 19:58:41 [facility] 2021-07-09 2021-07-09 Outpatient Yasmani CHEEMA [facility] [id number] Univers 15:00:00 15:00:00 NOLAN [id number] [facility] 2021-07-09 2021-07-09 Outpatient Yasmani CHEEMA [facility] [id number] Univers 15:00:00 15:00:00 NOLAN [facility] 2021-07-09 2021-07-09 Telemedici Deni [facility] 1.2.840.114 [id number] Univers 10:42:03 11:12:03 ne Visit Nolan BRUCEPEC 350.1.13.10 ity of [place] [id number] [address] DIAB[facility]ES CLINIC 2021-07-04 2021-07-04 Talend Etl Developer Sedrick, Tramaine Lab Main [facility] 1.2.8 40.114 [id number] Univers 15:05:00 15:20:00 Visit Nolan Cheema 350.1.13.10 ity of [place] [id number] Wy dical [address] 2021-07-04 2021-07-04 Outpatient R [facility] [id number] Univers 15:00:00 15:00:00 [id number] ity [facility] 2021-07-04 2021-07-04 [facility] [id number] Univers 15:00:00 15:00:00 NOLAN ity of [facility] 2021-07-04 2021-07-04 Orders Doctor SAMANTA 1.2.840.114 [id number] Univers 00:00:00 00:00:00 Only Unassigned, ULISES 350.1.13.10 ity of [place] [facility] 4.2.7.2.[id number] 2021-07-02 2021-07-02 [facility]phone [facility] 1.2.362.122 [id number] Univers 00:00:00 00:00:00 Nolan MULTISPEC 350.1.13.10 [place] [id number] [address] [facility] 2021-02-21 2021-02-21 Orders Doctor SAMANTA 1.2.840.114 [id number] Univers 00:00:00 00:00:00 Only Unassigned, ULISES 350.1.13.10 ity of [place] [facility] 4.2.7.2.[id number] [address] 2021-02-20 2021-02-20 Telephone Deni [facility] 1.2.158.326 [id number] Univers 00:00:00 00:00:00 Nolan MULTISPEC 350.1.13.10 it[place] [id number] [address] [facility] 2020-12-26 2020-12-26 Talend Etl Developer Vtc-Lab [facility] 1.2.840.114 [id number] Univers 16:42:32 16:57:32 Visit Nolan Cheema 350.1.13.10 [place] [id number] [address] DIAB[facility]ES [facility]INIC 2020-12-26 2020-12-26 Office Deni [facility] 1.2.840.114 [id number] Univers 15:57:47 16:40:04 Visit Nolan BARRERAPEC 350.1.13.10 ity of [place] 4.2.7.2.686 [facility] [id number] [address] DIAB[facility]ES [facility]INIC 2020-12-26 2020-12-26 Outpatient Yasmani CHEEMA [facility] [id number] Univers 16:00:00 16:00:00 NOLAN [id number] [facility] 2020-12-26 2020-12-26 Outpatient Yasmani CHEEMA [facility] [id number] Univers 16:00:00 16:00:00 NOLAN itrussell [facility] 2020-12-18 2020-12-18 [facility] 1.2.254.489 [id number] Univers 00:00:00 00:00:00 Nolan BARRERAPEC 350.1.13.10 ity of [place] 4.2.7.2.686 [facility] [id number] [address] [facility] 2020-11-13 2020-11-13 Outpatient Yasmani DIANE [facility] [id number] Univers 14:30:00 14:30:00 KIRILL [id number] [facility] 2020-11-13 2020-11-13 [facility] [id number] Univers 14:30:00 14:30:00 [facility] 2020-10-09 2020-10-09 [facility] [id number] Univers 13:30:00 13:30:00 KIRILL [id number] [facility] 2020-10-09 2020-10-09 [facility] [id number] Univers 13:30:00 13:30:00 [facility] 2020-09-17 2020-09-17 Orders Doctor SAMANTA 1.2.840.114 [id number] Univers 00:00:00 00:00:00 Only Unassigned, ULISES 350.1.13.10 ity of [facility] 4.2.7.2.686 as [id number] [facility] [address] [place] 2020-09-03 2020-09-03 Office [facility] 1.2.459.412 [id number] Univers 10:21:11 11:05:39 Visit Calderon Crump 350.1.13.10 i ty [facility] [place]2.7.2.[place] [facility] [id number] Wy dical [facility] 2020-09-03 2020-09-03 Outpatient [facility] [id number] Univers 10:30:00 10:30:00 CALDERON [id number] [facility] 2020-09-03 2020-09-03 [facility] [id number] Univers 10:30:00 10:30:00 CALDERON ity [facility] 2020-08-22 2020-08-22 [facility] [id number] [id number] Univers 10:30:00 23:59:00 Encounter Dagoberto Crump 350.1.13.10 ity [facility] 4.2.7.2.[place] [id number] [facility] [address] 2020-08-22 2020-08-22 Out[facility] [id number]-20 Univers 00:00:00 00:00:00 DAGOBERTO [id number] ity of [facility] 2020-08-22 2020-08-22 Outpatient R [facility] [id number] Univers 00:00:00 00:00:00 DAGOBERTO ity of [facility] 2020-08-15 2020-08-15 Telephone [facility] 1.2.099.032 [id number] Univers 00:00:00 00:00:00 Padmini Crump 350.1.13.10 ity of [place] 4.2.7.2.686 [facility] [id number] [facility] [address] [facility] [address] 2020-08-14 2020-08-14 Telephone [facility] 1.2.840.114 [id number] Univers 00:00:00 00:00:00 Dagoberto Health 350.1.13.10 it y of Cancer 4.2.7.2.686 [facility] - [phone] [facility] [address] 2020-08-10 2020-08-10 [facility] 1.2.434.676 [id number] Univers 19:00:00 23:59:00 Encounter Dagoberto Crump 350.1.13.10 ity of [place] 4.2.7.2.686 [facility] [id number] [address] 2020-08-10 2020-08-10 Outpatient [facility] [id number] Univers 19:00:00 19:00:00 DAGOBERTO [id number] ity of [facility] 2020-08-10 2020-08-10 [facility] [id number] [id number] Univers 18:30:00 18:59:00 Encounter Dagoberto [place] 350.1.13.10 ity of [place] 4.2.7.2.686 [facility] [id number] [address] 2020-08-10 2020-08-10 Outpatient R [facility] [id number] Univers 00:00:00 00:00:00 DAGOBERTO ity [facility] 2020-08-06 2020-08-06 Office [facility] 1.2.840.114 [id number] Univers 14:18:25 15:36:40 Visit [facility] 350.1.13.10 i ty [facility] [place]2.7.2.[place] [phone] Wy dical [facility] 204 [facility] 2020-08-06 2020-08-06 [facility] [id number] Univers 14:30:00 14:30:00 [facility] [id number] ity [facility] 2020-08-06 2020-08-06 Outpatient R [facility] [id number] Univers 14:30:00 14:30:00 [facility] 2020-08-06 2020-08-06 Orders Doctor [place] 1.2.840.114 [id number] Univers 00:00:00 00:00:00 Only Unassigned, ULISES 350.1.13.10 ity of [place] [facility] 4.2.7.2.[id number] [address] 2020-07-03 2020-07-03 Urgent Provider, [facility] 1.2.840.114 [id number] Univers 17:03:55 17:50:35 Care Unknown, Attending Health 350.1.13.10 ity [facility] 4.2.7.2.686 as Professio [phone] [facility] [address] [place] Office [facility] [address] One 2020-07-03 2020-07-03 Urgent Provider, [facility] [id number] 17:03:55 17:50:35 Care [facility] 350.1.13.10 Care [place] 4.2.7.2.686 Professio [id number] [address] One 2020-07-03 2020-07-03 Outpatient R [facility] [id number] Univers 17:00:00 17:00:00 [id number] ity [facility] 2020-07-03 2020-07-03 Outpatient R [facility] [id number] Univers 17:00:00 17:00:00 ity [facility] 2020-07-03 2020-07-03 Letter Doctor SAMANTA 1.2.840.114 [id number] Univers 00:00:00 00:00:00 (Out) Unassigned, ULISES 350.1.13.10 ity of [place] [facility] 4.2.7.2.[address] as [id number] [address] 2020-07-03 2020-07-03 Letter Doctor [place] 1.2.840.114 [id number] 00:00:00 00:00:00 (Out) Unassigned, ULISES 350.1.13.10 [facility] 4.2.7.2.686 [id number] [facility] 2020-02-29 2020-02-29 Urgent Provider, [facility] 1.2.840.114 [id number] Univers 15:39:22 15:59:22 Care Jem, Prisc[facility] 350.1.13.10 ity of [place] 4.2.7.2.686 as Professio [phone] Wy dic[address] Office [facility] 2020-02-29 2020-02-29 Urgent Provider, [facility] 1.2.553.342 [id number] 15:39:22 15:59:22 Care [facility] 350.1.13.10 Care [place] 4.2.7.2.686 Professio [phone] [address] 2020-02-29 2020-02-29 Outpatient R [facility] [id number] Univers 15:40:00 15:40:00 ity [facility] 2020-02-29 2020-02-29 Outpatient R [facility] [id number] Univers 15:40:00 15:40:00 ity [facility] 2020-02-28 2020-02-28 Outpatient R [facility] [id number] Univers 15:40:00 15:40:00 ity [facility] 2020-02-28 2020-02-28 Outpatient R JEM, [facility] [id number] Univers 15:40:00 15:40:00 PRISCILA ity [facility] 2020-02-28 2020-02-28 Letter Doctor [place] 1.2.840.114 [id number] Univers 00:00:00 00:00:00 (Out) Unassigned, ULISES 350.1.13.10 ity of [place] [facility] 4.2.7.2.686 as [id number] [address] 2020-02-28 2020-02-28 Letter Doctor SAMANTA 1.2.840.114 [id number] 00:00:00 00:00:00 (Out) Unassigned, ULISES 350.1.13.10 [facility] 4.2.7.2.686 [id number] [facility] 2019-10-07 2019-10-07 Urgent Alex Hollins [facility] 1.2.840.114 [id number] Univers 18:52:09 20:25:58 Care Unknown, Attending Health 350.1.13.10 ity of Surgical 4.2.7.2.686 as Specialti [id number] Wy dical [address] [facility] 2019-10-07 2019-10-07 Urgent Gurvinder [facility] 1.2.840.114 [id number] 18:52:09 20:25:58 Care [facility] 350.1.13.10 Surgical 4.2.7.2.686 Specialti [id number] es [address] [place] [address] 2019-10-07 2019-10-07 Outpatient R [facility] [id number] Univers 18:45:00 18:45:00 [id number] [facility] 2019-10-07 2019-10-07 Outpatient R UNKNOWN, [facility] [id number] Univers 18:45:00 18:45:00 ATTENDING ity [facility] 2019-04-05 2019-04-05 Office Urology, Agnieszka Dozier [facility] 1.2.840. 114 [id number] Univers 14:09:40 15:58:32 Visit Jones Burkett SPECIALTY 350.1.13 .10 ity of [place].2.[place] [id number] [facility] [address] [place] 2019-04-05 2019-04-05 Office Urology, [facility] 1.2.840.114 [id number] 14:09:40 15:58:32 Visit Agnieszka Dozier SPECIALTY 350.1.13.10 [place] 4.2.7.2.686 [place] [id number] 298 2019-04-05 2019-04-05 Letter Gonzalo [facility] 1.2.840.114 [id number] Univers 00:00:00 00:00:00 (Out) an, Jones SPECIALTY 350.1.13.10 [place] of [place].2.[place] [id number] [facility] [address] 2019-03-31 2019-03-31 Orders Doctor SAMANTA 1.2.840.114 [id number] Univers 00:00:00 00:00:00 Only Unassigned, ULISES 350.1.13.10 ity of [place] [facility] 4.2.7.2.686 as [id number] [facility] [address] Results Test Description Test Time Test Comments Results Result Comments Source URINALYSIS 2020-12-26 23:30:15 Test Item Value Reference Range Interpretation Comme nts APPEARANCE (test code = Clear Clear 7285525637) COLOR (test code = 4947619372) Yellow Yellow PH (test code = 5341269734) 4.8-8.0 SP GRAVITY (test code = 1.003-1.030 8174761379) GLU U QUAL (test code = Normal Normal 0437476106) BLOOD (test code = 1904407891) Negative Negative KETONES (test code = 0683176190) Negative Negative PROTEIN (test code = 2887-8) Negative Negative UROBILIN (test code = 2.0 mg/dL Normal A 6089542608) BILIRUBIN (test code = Negative Negative 8357147841) NITRITE (test code = 7024939195) Negative Negative LEUK DAVID (test code = Negative Negative 9098553936) RBC/HPF (test code = 5905696084) See_Comment [Automated message] The system which ge nerated this result transmit villa reference range: 0 - 3 HP F. The reference range was not used to interpret th is result as normal/abnormal . WBC/HPF (test code = 8815679732) <1 See_Comment [Automated message] The system which ge nerated this result transmit villa reference range: 0 - 5 HP F. The reference range was not used to interpret th is result as normal/abnormal . BACTERIA (test code = Negative Negative 0817521152) SQ EPITH (test code = <1 See_Comment [Auto mated message] The 9732236221) system which ge nerated this result transmit villa reference range: <=2 HPF. The reference range was not u sed to interpret this result as normal/abnormal . Lab Interpretation (test code = Abnormal 13998-4) [facility] 23[facility]26:38 Test Item Value Reference Range Interpretation Comments MAGNESIUM (test code = 1529225814) 1.9 mg/dL 1.7-2.4 Lab Interpretation (test code = Normal 26905-4) [facility]21[facility]02 23:26:38 Test Item Value Reference Range Interpretation Comments PHOSPHORUS (test code = 2044342725) 4.3 mg/dL 2.5-5.0 Lab Interpretation (test code = Normal 93844-0) [facility] METABOLIC [id number] 23:26:38 Test Item Value Reference Range Interpretation Comments NA (test code = 140 mmol/L 135-145 7977235943) K (test code = 4.0 mmol/L 3.5-5.0 2385924636) CL (test code = 101 mmol/L 98-108 4103411264) CO2 TOTAL (test code 29 mmol/L 23-31 = 5329227872) AGAP (test code = 2-16 3667502754) BUN (test code = 13 mg/dL 7-23 2678336858) GLUCOSE (test code = 79 mg/dL 70-110 1679637324) CREATININE (test code 0.89 mg/dL 0.60-1.25 = 2278244162) CALCIUM (test code = 9.9 mg/dL 8.6-10.6 2878253009) eGFR (test code = mL/min/1.73m2 3747402010) VELMA (test code = VELMA) Association of Glomerular Filtration Rate (GFR) and Staging of Kidney Disease* + + +- +| GFR (mL/min/1.73 m2) ?| With Kidney Damage ?| ?Without Kidney Damage+ ------+ ----+ ------+| ?>90 ?| ?Stage one ?| ? Normal ?+ -+ + -+| ?60-89 ?| ?Stage two ?| ? Decreased GFR ? + + +- +| ?30-59 ?| ?Stage three ?| ? Stage three ? + + +- +| ?15-29 ?| ?Stage four ? | ? Stage four ?+ -+ + -+| ?<15 (or dialysis) ? ?| ?Stage five ? | ? Stage five ?+ -+ + -+ *Each stage assumes the associated GFR level has been in effect for at least three months. ?Stages 1 to 5, with or without kidney disease, indicate chronic kidney disease. Notes: Determination of stages one and two (with eGFR >59mL/min/1.73 m2) requires estimation of kidney damage for at least three months as defined by structural or functional abnormalities of the kidney, manifested by either:Pathological abnormalities or Markers of kidney damage (including abnormalities in the composition of the blood or urine or abnormalities in imaging tests). [facility] CREAT RATIO URINE [id number] 23:25:37 Test Item Value Reference Range Interpretation Comments T. PROT U (test code = 2888-6) 8 mg/dL CREAT U (test code = 6121657450) 284.5 mg/dL Protein/Creatinine Ratio Urine 0.0-2.0 (test code = 7419302076) [facility] Paso[facility] WITHOUT [id number] 23:03:11 Test Item Value Reference Range Interpretation Comments WBC (test code = 6690-2) See_Comment [A utomated message] The system alive[employer]cn generated this result transmit villa reference range : 4.20 - 10.70 10*3/?L. The reference range was not used to interpret this result as normal/abnormal . RBC (test code = 789-8) See_Comment [Au tomated message] The system alive[employer] generated this result transmit villa reference range : 4.26 - 5.52 10* 6/?L. The reference r leeanne was not used to interpret this result as normal/abnormal . HGB (test code = 718-7) 17.1 g/dL 12.2-16.4 H HCT (test code = 4544-3) 47.3 % 38.4-49.3 MCH (test code = 785-6) 31.2 pg 26.1-32.7 MCV (test code = 787-2) 86.3 fL 81.7-95.6 MCHC (test code = 786-4) 36.2 g/dL 31.2-35.0 H PLT (test code = 777-3) See_Comment [Au tomated message] The system alive[employer] generated this result transmit villa reference range : 150 - 328 10*3/?L. The reference range was not used to interpret this result as normal/abnormal . MPV (test code = 11.2 fL 9.8-13.0 00261-2) RDW-CV (test code = 12.1 % 12.1-15.4 788-0) RDW-SD (test code = 37.9 fL 38.5-51.6 L 17900-6) NRBC x10^3 (test code = <0.01 See_Comment [Au tomated message] 5286592602) The system alive[employer]cn generated this result transmit villa reference range : 10*3/?L. The reference range was not used to interpret this result as normal/abnormal . NRBC/100 WBC (test code See_Comment [Au tomated message] = 6150139434) The system [employer] generated this result transmit villa reference range : 0.0 - 10.0 /100 WBC s. The reference r leeanne was not used to interpret this result as normal/abnormal . IPF % (test code = 7935141214) Lab Interpretation (test Abnormal code = 47901-5) [facility] Paso[facility] ABDOMEN PELVIS WO [id number] 17:15:35CT Abdomen and Pelvis without contrast. CLINICAL HISTORY: Abdominal pain. S/P left orchiectomy for possibletorsion. TECHNIQUE: Multidetector helical CT acquisition was obtained from the lungbases to the greater trochanters without oral and IV contrast. ?The imageswere reviewed in lung, bone, and soft t issue windows. FINDINGS: ?Absence of intravenous contrast limits evaluation of the solidorgans. Evaluation of the bowel is also limited by lack of oral contrast.Comparison is made with contrast-enhanced CT scans of 07/07/2015. Lower lungs: Clear. No pleural effusion or pericardial effusion. Nodefiniteevidence of hiatal hernia. Liver, Gallbladder and Spleen: Liver is slightly enlarged, measuring 17.2cm in length. Spleen is borderline enlarged, 13 x 6.5 cm. No grosspathology detected in the liver or in the spleen. No calcified gallstones.Biliary ducts and the pancreatic duct appear of normal size. Pe ritoneum: ?No free air or free fluid. No lymphadenopathy. Pancreas and Adrenals: ?Unremarkable pancreas and adrenal glands. Kidneys and Ureters: ?No visible calculi in the renal collecting systems. No hydroureter or hydronephrosis. ? Vessels: Normal. Retroperitoneum: No abnormal fluid or lymphadenopathy. Bowel: No acute findings. Normal appendix is visualized. Bladder ?and Reproductive Organs: Left orchiectomy noted. Bones: No aggressive bone lesions. Soft tissues: Unremarkable. CONCLUSION:1. Mild hepatomegaly. Borderline splenomegaly.2. S/P left orchiectomy. [facility], Radiant Results Inft User -08/22/2020 11:16 AM CSTCT Abdomen and Pelvis without contrast.CLINICAL HISTORY: Abdominal pain. S/P left orchiectomy for possibletorsion.TECHNIQUE: Multidetector helical CT acquisition was obtained from the lungbases to the greater trochanters without oral and IV contrast. The imageswere reviewed in lung, bone, and soft tissue windows.FINDINGS: Absence of intravenous contrast limits evaluation of the solidorgans. Evaluation of the bowel is also limited by lack of oral contrast.Comparison is made with contrast-enhanced CT scans of 07/07/2015. Lower lungs: Clear. No pleural effusion or pericardial effusion. Nodefinite evidence of hiatal hernia.Liver, Gallbladder and Spleen: Liver is slightly enlarged, measuring 17.2cm in length. Spleen is borderline enlarged, 13 x 6.5 cm. No grosspathology detected in the liver or in the spleen. No calcified gallstones.Biliary ducts and the pancreatic duct appear of normal size.Peritoneum: No free air or free fluid. No lymphadenopathy.Pancreas and Adrenals: Unremarkable pancreas and adrenal glands.Kidneys and Ureters: No visible calculi in the renal collecting systems. No hydroureter or hydronephrosis. Vessels: Normal.Retroperitoneum: No abnormal fluid or lymphadenopathy.Bowel: No acute findings. Normal appendix is visualized.Bladder and Reproductive Organs: Left orchiectomy noted. Bones: No aggressive bone lesions.Soft tissues: Unremarkable.CONCLUSION:1. Mild hepatomegaly. Borderline splenomegaly.2. S/P left orchiectomy.[facility] SCROTUM AND [id number] 04:24:45 Suspect left hernia containing bowel. In the setting of recent surgery, CTof the pelvis with contrast can be considered to evaluate for possiblepostsurgical complications. Preliminary Report Dictated by Resident: Rusty Paez MD., have reviewed this study and agree with the abovereport.Exam: SCROTAL ULTRASOUND HISTORY: Tender left and swollen left spermatic cord s/p Left orchiectomySept 2019. ?. TECHNIQUE: Grayscale and color Doppler images of the scrotum were obtained. FINDINGS: RIGHT TESTICLE: Normal size, shape, and echotexture without a focal lesion.The right testicle measures 4.6 x 2.3 x 3.4 cm (19 mL). LEFT TESTICLE: ?Prior orchectomy changes are noted. A heterogenousappearing 2.3 x 1.1 x 1.7 cm hypoechoic structure is visualized with mildinternal blood flow on color Doppler. Loops of bowel are noted in theadjacent abdominal cavity and have a somewhat similar appearance. While nogut signature is identified in the inguinal canal, there is soft tissuemovement along/parallel to the inguinal canal during Valsalva maneuvers. EPIDIDYMIDES: The right epididymis appears unremarkable and measures up to1.0 cm. No focal masses.. BLOOD FLOW: Normal flow visualized on color Doppler in the right testicle. SCROTUM: No hydrocele. VARICOCELE: None. [facility], Radiant Results Inft User - 08/10/2020 10:25 PM CSTExam: SCROTAL ULTRASOUNDHISTORY: Tender left and swollen left spermatic cord s/p Left orchiectomySept 2019. .TECHNIQUE: Grayscale and color Doppler images of the scrotum were obtained.FINDINGS: RIGHT TESTICLE: Normal size, shape, and echotexture without a focal lesion.The right testicle measures 4.6 x 2.3 x 3.4 cm (19 mL). LEFT TESTICLE: Prior orchectomy changes are noted. A heterogenousappearing 2.3 x 1.1 x 1.7 cm hypoechoic structure is visualized with mildinternal blood flow on color Doppler. Loops of bowel are noted in theadjacent abdominal cavity and have a somewhat similar appearance. While nogut signature is identified in the inguinal canal, there is soft tissuemovement along/parallel to the inguinal canal during Valsalva maneuvers.EPIDIDYMIDES: The right epididymis appears unremarkable and measures up to1.0 cm. No focal masses..BLOOD FLOW: Normal flow visualized on color Doppler in the right testicle.SCROTUM: No hydrocele.VARICOCELE: None.IMPRESSIONSuspect left hernia containing bowel. In the setting of recent surgery, CTof the pelvis with contrast can be considered to evaluate for possiblepostsurgical complications.Preliminary Report Dictated by Resident:Rusty Vyas MD., have reviewed this study and agree with the abovereport.[facility] RETROPERITONEAL [id number] 04:13:53 1. ?Unremarkable sonographic appearance of kidneys and bladder. Preliminary Report Dictated by Resident: Rusty Paez MD., have reviewed this study and agree with the abovereport.EXAM: US RETROPERITONEAL COMPLETE HISTORY: 20 years-old Male with Tender left and swollen left spermatic cords/p Left orchiectomy Mar 2020. Need to assess upper tracts . TECHNIQUE: Ultrasound of kidneys and bladder was performed with grayscaleand selected color Doppler imaging. Child Center Assistant images were obtained forthe record. COMPARISON: CT abdomen and pelvis with contrast, 07/07/2015. FINDINGS: KIDNEYS:RIGHT:Size:Normal, measuring 9.8 x 3.9 x 4.2 cm (84 mL).Parenchyma: Normal renal cortical echogenicity and thickness. No focalsolid or cystic renal lesions are detected.Collecting System: No hydronephrosis.Other: None. LEFT:Size:Normal, measuring 10.5 x 5.0 x 4.5 cm (126 mL).Parenchyma:Normalrenal cortical echogenicity and thickness. No focal solidor cystic renal lesions are detected.Collecting System: No hydronephrosis.Other: None. BLADDER: Bladder is distended and unremarkable OTHER: None. [facility], Radiant Results Inft User - 08/10/2020 10:14 PM CSTEXAM: US RETROPERITONEAL COMPLETEHISTORY:20 years-old Male with Tender left and swollen left spermatic cords/p Left orchiectomy Mar 2020. Need to assess upper tracts .TECHNIQUE: Ultrasound of kidneys and bladder was performed with grayscaleand selected color Doppler imaging. Child Center Assistant images were obtained forthe record.COMPARISON: CT abdomen and pelvis with contrast, 07/07/2015.FINDINGS: KIDNEYS:RIGHT:Size:Normal, measuring 9.8 x 3.9 x 4.2 cm (84 mL).Parenchyma: Normal renal cortical echogenicity and thickness. No focalsolid or cystic renal lesions are detected.Collecting System: No hydronephrosis.Other: None.LEFT:Size:Normal, measuring 10.5 x 5.0 x 4.5 cm (126 mL).Parenchyma:Normal renal cortical echogenicity and thickness. No focal solidor cystic renal lesions are detected.Collecting System: No hydronephrosis.Other: None.BLADDER: Bladder is distended and unremarkableOTHER: None.IMPRESSION1. Unremarkable sonographic appearance of kidneys and bladder. Preliminary Report Dictated by Resident: Rusty Bullock, Rusty Elizabeth MD., have reviewed this study and agree with the abovereport.[facility] URINALYSIS, [id number] 20:54:00 Test Item Value Reference Range Interpretation Comments POCT U SP GRAV (test code = 1.025 mg/dl 1.005-1.025 3255) POCT PH U (test code = 3254) 6.0 mg/dl 5-8 POCT U LEUK EST (test code = negative Negative - Negative 3263) POCT U NIT (test code = 3262) negative Negative - Negative POCT U PROT (test code = negative Negative - Negative 3259) POCT U GLU (test code = 3256) negative Negative - Negative POCT U KETONE (test code = trace Negative - Negative 3258) POCT U UROBILI (test code = 0.2 mg/dl 0.2-1 3260) POCT U BILI (test code = small Negative - Negative 3261) POCT U BLD (test code = 3257) negative Negative - Negative POCT U COLOR (test code = dark yellow 3266) POCT U APPEAR (test code = clear 3267) [facility] URINALYSIS, [id number] 20:54:00 Test Item Value Reference Range Interpretation Comments POCT U SP GRAV (test code = 1.025 mg/dl 1.005-1.025 3255) POCT PH U (test code = 3254) 6.0 mg/dl 5-8 POCT U LEUK EST (test code = negative Negative - Negative 3263) POCT U NIT (test code = 3262) negative Negative - Negative POCT U PROT (test code = negative Negative - Negative 3259) POCT U GLU (test code = 3256) negative Negative - Negative POCT U KETONE (test code = trace Negative - Negative 3258) POCT U UROBILI (test code = 0.2 mg/dl 0.2-1 3260) POCT U BILI (test code = small Negative - Negative 3261) POCT U BLD (test code = 3257) negative Negative - Negative POCT U COLOR (test code = dark yellow 3266) POCT U APPEAR (test code = clear 3267) [facility]2020-07-03 23:43:00 Test Item Value Reference Range Interpretation Comments POCT GP A STREP (test neg Negative - code = 87718-9) Negative VELMA (test code = VELMA) accurate development and interpretation of all internal controls Lab Interpretation Normal (test code = 53890-4) [facility]"
[2021-09-16 17:26] LABS: Absolute Lymphocytes (CBC) 2.6 K/uL (0.7-4.9); Lymphocytes % 29.9 % (15.3-44.8); MPV 9.4 fL (7.6-11.3); RBC Red Blood Cell Count 5.09 M/uL (4.33-5.43)
[2021-09-16] MEDS ORDERED: FAMOTIDINE 20 MG/2 ML VIAL IV ONE (17:29)
[2021-09-16] MEDS ORDERED: ASPIRIN 81 MG CHEWABLE TABLET ONE ×2 (17:29→17:31)
[2021-09-16 17:42] LABS: AST/SGOT 17 U/L (15-37); Albumin 4.2 g/dL (3.4-5.0); BUN Blood Urea Nitrogen 13 mg/dL (7-18); Bicarbonate 27 mmol/L (21-32); Bilirubin Direct 0.1 mg/dL (0-0.2); Glucose Level 89 mg/dL (74-106); Magnesium 2.2 mg/dL (1.8-2.4); Potassium 3.6 mmol/L (3.5-5.1); Sodium Level 137 mmol/L (136-145)
--- NOTE | 2021-09-16 17:43 | ER ---
Nurse's Notes [facility] Name: Stanley Andre Age: 21 yrs Sex: Male : 2000 Arrival Date: 09/16/2021 Time: 15:21 Bed 8 Private MD: Diagnosis: Chest pain, unspecified Presentation: 09/16 15:45 Chief complaint: Patient states: Midsternal chest pain, describes as squeezing, SOB, ph dizziness, worse w/ activity. Hx of cardiac problems, symptoms started yesterdsay. Coronavirus screen: Vaccine status: Patient reports receiving the 1st dose of the Covid vaccine. Ebola Screen: No symptoms or risks identified at this time. Initial Sepsis Screen: Does the patient meet any 2 criteria? No. Patient's initial sepsis screen is negative. Does the patient have a suspected source of infection? No. Patient's initial sepsis screen is negative. Risk Assessment: Do you want to hurt yourself or someone else? Patient reports no desire to harm self or others. Onset of symptoms was September 16, 2021. 15:45 Method Of Arrival: Ambulatory ph 15:45 Acuity: JUANJO 3 ph Triage Assessment: 22:52 General: Appears in no apparent distress. comfortable, Behavior is cooperative, st1 agitated. Respiratory: No deficits noted. Reports. 23:04 Respiratory: Onset: The symptoms/episode began/occurred today. sm5 23:04 Respiratory: the patient has mild shortness of breath. sm5 Historical: - Allergies: 15:47 Abilify; ph 15:47 Advair Diskus; ph 15:47 Geodon; ph 15:47 Seroquel; ph 15:47 Wellbutrin; ph - Home Meds: 15:47 propranolol 10 mg Oral tab 1 tab daily [Active]; citalopram 20 mg tab 1.5 tabs once ph daily [Active]; hydroxyzine HCl 25 mg Oral tab 1 tab twice a day [Active]; nifedipine 90 mg oral tr24 1 tab [Active]; Strattera 18 mg Oral cap daily [Active]; - PMHx: 15:47 ADD/ADHD; Anxiety; Depression; Hypertension; ocd; PTSD; testicular torsion; Heart ph murmur; - Immunization history:: Adult Immunizations up to date. - Social history:: Smoking status: Patient denies any tobacco usage or history of. Screenin:41 Abuse screen: Denies threats or abuse. Denies injuries from another. Nutritional ww screening: No deficits noted. Tuberculosis screening: No symptoms or risk factors identified. Fall Risk None identified. Assessment: 17:00 General: Appears in no apparent distress. comfortable. Pain: Complains of pain in ww chest. Neuro: Level of Consciousness is awake, alert, obeys commands, Oriented to person, place, time, situation, Moves all extremities. Gait is steady. Cardiovascular: Capillary refill is > 3 seconds Patient's skin is warm and dry. Rhythm is regular Chest pain is located in chest wall. Respiratory: Airway is patent Respiratory effort is even, unlabored, Respiratory pattern is regular, symmetrical. GI: : No signs and/or symptoms were reported regarding the genitourinary system. Derm: No signs and/or symptoms reported regarding the dermatologic system. Skin is intact, is healthy with good turgor. 18:41 Reassessment: Patient appears in no apparent distress at this time. No changes from previously documented assessment. Patient and/or family updated on plan of care and expected duration. Pain level reassessed. Patient is alert, oriented x 3, equal unlabored respirations, skin warm/dry/pink. 22:49 Reassessment: the patient called on the call light and stated he wanted to leave the [address] I advised that he would be leaving [facility] and reviewed with the patient verbally the risk of heart attack, cardiovascular disease, stroke and . the patient stated he understood the risks and signed the [facility] paperwork. 22:52 Respiratory: Breath sounds are clear bilaterally. st1 Vital Signs: 15:45 BP 135 / 82; Pulse 73; Resp 18; Temp 98.0; Pulse Ox 100% on R/A; Weight 96.16 kg; ph Height 5 ft. 9 in. (175.26 cm); 19:00 BP 127 / 95; Pulse 87; Resp 16; Pulse Ox 100% on R/A; st1 20:00 BP 140 / 88; Pulse 73; Resp 16; Pulse Ox 99% on R/A; st1 21:00 BP 127 / 82; Pulse 86; Resp 16; Pulse Ox 97% on R/A; st1 15:45 Body Mass Index 31.31 (96.16 kg, 175.26 cm) ph ED Course: 15:21 Patient arrived in ED. ds1 15:47 Triage completed. ph 15:48 Arm band placed on. ph 16:51 Jamar Nettles MD is Attending Physician. teofilo 17:00 cafeteria monitor on. Pulse ox on. NIBP on. ww 17:00 Inserted saline lock: 20 gauge in right antecubital area, using aseptic technique. ww Blood collected. 17:06 Devin Liu, RN is Primary Nurse. jl7 18:14 XRAY Chest (1 view) In Process Unspecified. EDMS 18:39 transfer initiated to [facility] by Dr nettles. bd 18:41 Patient has correct armband on for positive identification. Bed in low position. Call ww light in reach. Side rails up X 1. 19:28 Primary Nurse role handed off by Devin Liu, ROSETTE mw2 22:46 Ema Thrasher, RN is Primary Nurse. st1 22:52 No provider procedures requiring assistance completed. IV discontinued, intact, st1 bleeding controlled, No redness/swelling at site. Pressure dressing applied. Administered Medications: 17:31 Drug: Aspirin Chewable Tablet 162 mg Route: PO; ww 17:31 Drug: Pepcid (famotidine) 20 mg Route: IVP; Site: left antecubital; ww Outcome: 17:43 ER care complete, transfer ordered by . [facility] 22:52 AMA AMA form signed st1 22:52 Condition: unchanged 22:52 Instructed on AMA 23:23 Patient left the ED. bb Signatures: Dispatcher [employer] EDMS Simona Cramer Jamar Nettles MD MD cha Sanford, Demi ds1 Lluvia Kennedy RN RN bb Sheree Chung RN RN Devin Liu, RN RN jl7 Ruslan Juarez mw2 Sima Lee RN RN sm5 Wood, Whitney, RN RN Ema Thrasher, ROSETTE DINERO st1
--- NOTE | 2021-09-16 17:44 | EDPHYS ---
Physician Documentation [facility] Name: Stanley Andre Age: 21 yrs Sex: Male : 2000 Arrival Date: 09/16/2021 Time: 15:21 Bed 8 Private MD: ED Physician Jamar Nettles HPI: 09/16 17:00 This 21 yrs old Male presents to ER via Ambulatory with complaints of Heart teofilo Issue, Shortness Of Breath. 17:00 The patient has shortness of breath with light activity. Onset: The symptoms/episode teofilo began/occurred 1 day(s) ago. Duration: The symptoms are intermittent. The patient's shortness of breath has no apparent modifying factors. Associated signs and symptoms: The patient has no apparent associated signs or symptoms. Severity of symptoms: At their worst the symptoms were mild moderate in the emergency department the symptoms are unchanged. The patient has not experienced similar symptoms in the past. Historical: - Allergies: 15:47 Abilify; ph 15:47 Advair Diskus; ph 15:47 Geodon; ph 15:47 Seroquel; ph 15:47 Wellbutrin; ph - Home Meds: 15:47 propranolol 10 mg Oral tab 1 tab daily [Active]; citalopram 20 mg tab 1.5 tabs once ph daily [Active]; hydroxyzine HCl 25 mg Oral tab 1 tab twice a day [Active]; nifedipine 90 mg oral tr24 1 tab [Active]; Strattera 18 mg Oral cap daily [Active]; - PMHx: 15:47 ADD/ADHD; Anxiety; Depression; Hypertension; ocd; PTSD; testicular torsion; Heart ph murmur; - Immunization history:: Adult Immunizations up to date. - Social history:: Smoking status: Patient denies any tobacco usage or history of. ROS: 17:02 Constitutional: Negative for fever, chills, and weight loss, Eyes: Negative for injury, toefilo pain, redness, and discharge, ENT: Negative for injury, pain, and discharge, Neck: Negative for injury, pain, and swelling, Abdomen/GI: Negative for abdominal pain, nausea, vomiting, diarrhea, and constipation, Back: Negative for injury and pain, : Negative for injury, bleeding, discharge, and swelling, MS/Extremity: Negative for injury and deformity, Skin: Negative for injury, rash, and discoloration, Neuro: Negative for headache, weakness, numbness, tingling, and seizure, Psych: Negative for depression, anxiety, suicide ideation, homicidal ideation, and hallucinations, Allergy/Immunology: Negative for hives, rash, and allergies, Endocrine: Negative for neck swelling, polydipsia, polyuria, polyphagia, and marked weight changes, Hematologic/Lymphatic: Negative for swollen nodes, abnormal bleeding, and unusual bruising. 17:02 Cardiovascular: Positive for chest pain, of the chest. 17:02 Respiratory: Positive for shortness of breath, at rest. Exam: 17:02 Constitutional: This is a well developed, well nourished patient who is awake, alert, teofilo and in no acute distress. Head/Face: Normocephalic, atraumatic. Eyes: Pupils equal round and reactive to light, extra-ocular motions intact. Lids and lashes normal. Conjunctiva and sclera are non-icteric and not injected. Cornea within normal limits. Periorbital areas with no swelling, redness, or edema. ENT: Nares patent. No nasal discharge, no septal abnormalities noted. Tympanic membranes are normal and external auditory canals are clear. Oropharynx with no redness, swelling, or masses, exudates, or evidence of obstruction, uvula midline. Mucous membranes moist. Neck: Trachea midline, no thyromegaly or masses palpated, and no cervical lymphadenopathy. Supple, full range of motion without nuchal rigidity, or vertebral point tenderness. No Meningismus. Chest/axilla: Normal chest wall appearance and motion. Nontender with no deformity. No lesions are appreciated. Cardiovascular: Regular rate and rhythm with a normal S1 and S2. No gallops, murmurs, or rubs. Normal PMI, no JVD. No pulse deficits. Respiratory: Lungs have equal breath sounds bilaterally, clear to auscultation and percussion. No rales, rhonchi or wheezes noted. No increased work of breathing, no retractions or nasal flaring. Abdomen/GI: Soft, non-tender, with normal bowel sounds. No distension or tympany. No guarding or rebound. No evidence of tenderness throughout. Back: No spinal tenderness. No costovertebral tenderness. Full range of motion. Male : Normal genitalia with no discharge or lesions. Skin: Warm, dry with normal turgor. Normal color with no rashes, no lesions, and no evidence of cellulitis. MS/ Extremity: Pulses equal, no cyanosis. Neurovascular intact. Full, normal range of motion. Neuro: Awake and alert, GCS 15, oriented to person, place, time, and situation. Cranial nerves II-XII grossly intact. Motor strength 5/5 in all extremities. Sensory grossly intact. Cerebellar exam normal. Normal gait. Psych: Awake, alert, with orientation to person, place and time. Behavior, mood, and affect are within normal limits. 17:02 Musculoskeletal/extremity: DVT Exam: No signs of deep vein thrombosis. no pain, no swelling, no tenderness, negative Homans' sign noted on exam, no appreciated bluish discoloration, no erythema, no increased warmth. Vital Signs: 15:45 BP 135 / 82; Pulse 73; Resp 18; Temp 98.0; Pulse Ox 100% on R/A; Weight 96.16 kg; ph Height 5 ft. 9 in. (175.26 cm); 19:00 BP 127 / 95; Pulse 87; Resp 16; Pulse Ox 100% on R/A; st1 20:00 BP 140 / 88; Pulse 73; Resp 16; Pulse Ox 99% on R/A; st1 21:00 BP 127 / 82; Pulse 86; Resp 16; Pulse Ox 97% on R/A; st1 15:45 Body Mass Index 31.31 (96.16 kg, 175.26 cm) ph MDM: 16:51 Patient medically screened. teofilo 17:03 Differential diagnosis: CHF exacerbation, abnormal EKG, acute myocardial infarction, teofilo acute pericarditis, coronary artery disease cholecystitis, esophagitis, hiatal hernia, pulmonary edema, Pulmonary Embolism Unstable Angina. Antibiotic administration: Not indicated. HEART Score: History: Moderately Suspicious (1), ECG: Normal (0), Age: < or = 45 years (0), Risk Factors: 1 or 2 risk factors (1), [Hypertension] [+ Family HX] Troponin: < or = 1 x Normal Limit (0). The patient's Wells Deep Vein Thrombosis Score was calculated as follows: Total Score: 0. This patient was found to be at low risk for a deep vein thrombosis by using the Well's assessment criteria Total Score: 0-2 Pts- Low Risk. The patient's pulmonary embolism risk score was calculated as follows: Total Score: 0-2 points. This patient was found to be at low risk for a pulmonary embolism by using the Well's assessment criteria Total Score: 0-2 points. This patient was found to be at low risk for a pulmonary embolism by using the Well's assessment criteria. JENNIFER Risk Score: TOTAL SCORE = 0 Total Score = 0. Immunization status:. Data reviewed: vital signs, nurses notes, lab test result(s), EKG, radiologic studies, CT scan, plain films. Data interpreted: radiation monitor: rate is 73 beats/min, rhythm is regular, Pulse oximetry: on room air is 100 %. Test interpretation: by ED physician or midlevel provider: ECG, plain radiologic studies. Counseling: I had a detailed discussion with the patient and/or guardian regarding: the historical points, exam findings, and any diagnostic results supporting the discharge/admit diagnosis, lab results, radiology results. 09/16 17:00 Order name: Basic Metabolic Panel; Complete Time: 17:50 [facility] 09/16 17:00 Order name: CBC with Diff; Complete Time: 17:43 [facility] 09/16 17:00 Order name: LFT's; Complete Time: 17:50 [facility] 09/16 17:00 Order name: Magnesium; Complete Time: 17:50 [facility] 09/16 17:00 Order name: NT PRO-BNP; Complete Time: 17:50 [facility] 09/16 17:00 Order name: PT-INR; Complete Time: 18:10 [facility] 09/16 17:00 Order name: Troponin HS; Complete Time: 17:50 [facility] 09/16 17:00 Order name: XRAY Chest (1 view); Complete Time: 18:41 [facility] 09/16 17:00 Order name: EKG; Complete Time: 17:01 [facility] 09/16 17:00 Order name: Cardiac monitoring; Complete Time: 17:24 [facility] 09/16 17:00 Order name: D-Dimer; Complete Time: 18:10 [facility] 09/16 17:00 Order name: SARS-COV-2 RT PCR (Document "Date of Onset" if Symptomatic) [facility] 09/16 17:00 Order name: EKG - Nurse/Tech; Complete Time: 17:11 [facility] 09/16 17:00 Order name: IV Saline Lock; Complete Time: 17:24 [facility] 09/16 17:00 Order name: Labs collected and sent; Complete Time: 17:24 teofilo 09/16 17:00 Order name: O2 Per Protocol; Complete Time: 17:11 teofilo 09/16 17:00 Order name: O2 Sat Monitoring; Complete Time: 17:11 teofilo Administered Medications: 17:31 Drug: Aspirin Chewable Tablet 162 mg Route: PO; ww 17:31 Drug: Pepcid (famotidine) 20 mg Route: IVP; Site: left antecubital; ww Disposition Summary: 09/16/21 23:23 Left Against Medical Advice Location: Home jr8 Problem: new(09/16/21 23:23) jr8 Symptoms: have improved(09/16/21 23:23) jr8 Condition: Stable(09/16/21 23:23) jr8 Diagnosis - Chest pain, unspecified(09/16/21 23:23) jr8 Signatures: Dispatcher [employer] EDJamar Cartwright MD MD cha Roszak, Josh, PA PA jr8 Sheree Chung RN RN [facility] Services[facility] RN RN ww Corrections: (The following items were deleted from the chart) 23:22 17:43 to [facility], heart care team teofilo jr8 23:22 17:43 [facility] teofilo jr8 23:22 17:43 Higher level of care teofilo jr8 23:22 17:43 Stable teofilo jr8 23:22 17:43 new teofilo jr8 23:22 17:43 have improved teofilo jr8 23:22 17:43 Chest pain, unspecified teofilo jr8 23:22 17:43 Dyspnea teofilo jr8 23:22 17:43 Essential (primary) hypertension teofilo jr8
[2021-09-16 17:47] LABS: ALT/SGPT 29 U/L (12-78); Alkaline Phosphatase 97 U/L (45-117); Bilirubin Total 0.5 mg/dL (0.2-1.0); NT PRO-BNP 13 pg/mL (<125); Protein, Total 7.5 g/dL (6.4-8.2)
[2021-09-16 18:02] LABS: Protime INR 1.03
--- NOTE | 2021-09-16 18:30 | RAD REPORT ---
EXAM DESCRIPTION: Yani Single View09/16/2021 6:14 pm CLINICAL HISTORY: Chest pain COMPARISON: 2019 FINDINGS: The lungs appear clear of acute infiltrate. The heart is normal size IMPRESSION: No acute abnormalities displayed
[2021-09-17 00:48] VITALS: TEMP 98
[2021-09-17 00:54] VITALS: BP 127/82; O2SAT 97
--- NOTE | 2021-09-17 07:24 | EKG ---
Test Date: 2021-09-16 Test Time: 15:53:05 Wool Handler: PH MEASUREMENT RESULTS: Intervals: Rate: 70 WV: 140 QRSD: 76 QT: 376 QTc: 406 [place]: P: 47 WV: 140 QRS: 16 T: 48 INTERPRETIVE STATEMENTS: Normal sinus rhythm Normal ECG Compared to ECG 04/07/2019 01:07:19 No significant changes Electronically Signed On 09-17-21 07:22:36 MAINTENANCE ELECTRICIAN by Magno Riggs
== END 2021-09-16 23:23 | disposition left against medical advice (07) ==
LOC: ER 15:19
DX: R07.9 Chest pain, unspecified (principal); I10 Essential (primary) hypertension; F41.8 Other specified anxiety disorders; Z20.822 Contact with and (suspected) exposure to COVID-19; Z88.8 Allergy status to other drugs, medicaments and biological substances
CPT/HCPCS: 93005; 85025; 80048; 36415; 83735; 85610; 85379; 80076; 84484; 83880; 71045; 96374; 99284; U0003